=== PATIENT | female | born 1985 | race Caucasian/White ===

== ENCOUNTER 2022-12-22 18:18 | Inpatient (IN) | payer OTHER ==
--- NOTE | 2022-12-22 18:46 | ED ---
Abdominal Pain HPI - General Chief Complaint: Abdominal Pain Stated Complaint: Hypertension,Abd Pain Time Seen by Provider: 12/22/22 18:29 Source: patient, EMS, RN notes reviewed, old records reviewed Mode of arrival: EMS Limitations: no limitations - History of Present Illness Initial Comments: This is a 37-year-old female to the emergency department for evaluation today. Patient coming in for initial complaint of abdominal pain and subsequent severe elevated blood pressure. Patient states she went to an urgent care and was since the hospital for severely abnormal blood pressure. Patient states 10-15 years ago she had elevated blood pressure during but has been off medication for at least 10 years. Patient states she was taking weight loss medication, Adipex-P 3 months ago he did have significant weight loss around 30 pounds. Patient has significant shortness of breath especially with exertion but does not feel well at times feels near syncopal. MD Complaint: abdominal pain, other (Severely elevated blood pressure) -: unknown Location: diffuse, RUQ Migration to: RUQ Severity: moderate Severity scale (1-10): 6 Quality: fullness, sharp Consistency: intermittent Improves With: nothing Worsens With: nothing Context: sick contacts Associated Symptoms: nausea Treatments Prior to Arrival: other (0) - Related Data Home Medications Medication Instructions Recorded Confirmed Omeprazole 20 mg PO DAILY PRN 12/22/22 12/22/22 Allergies Allergy/AdvReac Type Severity Reaction Status Date / Time No Known Allergies Allergy Verified 12/22/22 19:56 Review of Systems ROS Statement: Those systems with pertinent positive or pertinent negative responses have been documented in the HPI. ROS Other: All systems not noted in ROS Statement are negative. Past Medical History Past Medical History: No Reported History History of Any Multi-Drug Resistant Organisms: None Reported Past Surgical History: No Surgical Hx Reported Past Psychological History: No Psychological Hx Reported Smoking Status: Never smoker Past Alcohol Use History: Occasional Past Drug Use History: None Reported - Past Family History Mother Family Medical History: Hypertension, Thyroid Disorder Father Family Medical History: Hypertension Brother(s) Family Medical History: Hypertension General Exam Limitations: no limitations General appearance: alert, in no apparent distress, anxious Head exam: Present: atraumatic, normocephalic, normal inspection Eye exam: Present: normal appearance, PERRL, EOMI. Absent: scleral icterus, conjunctival injection, periorbital swelling ENT exam: Present: normal exam, mucous membranes moist Neck exam: Present: normal inspection. Absent: tenderness, meningismus, lymphadenopathy Respiratory exam: Present: normal lung sounds bilaterally. Absent: respiratory distress, wheezes, rales, rhonchi, stridor Cardiovascular Exam: Present: normal rhythm, tachycardia, normal heart sounds. Absent: systolic murmur, diastolic murmur, rubs, gallop, clicks GI/Abdominal exam: Present: soft, normal bowel sounds. Absent: distended, tenderness, guarding, rebound, rigid Extremities exam: Present: normal inspection, full ROM, normal capillary refill. Absent: tenderness, pedal edema, joint swelling, calf tenderness Back exam: Present: normal inspection Neurological exam: Present: alert, oriented X3, CN II-XII intact Psychiatric exam: Present: normal affect, normal mood Skin exam: Present: warm, dry, intact, normal color. Absent: rash Course Vital Signs 12/22/22 12/22/22 12/22/22 18:21 18:30 19:00 Temperature 97.7 F Pulse Rate 120 H 119 H 118 H Respiratory 18 24 24 Rate Blood Pressure 245/175 233/178 232/177 O2 Sat by Pulse 98 98 98 Oximetry 12/22/22 12/22/22 12/22/22 19:15 19:30 20:15 Temperature Pulse Rate 86 82 84 Respiratory 24 19 26 H Rate Blood Pressure 189/141 165/126 177/136 O2 Sat by Pulse 97 97 98 Oximetry 12/22/22 12/22/22 12/22/22 20:45 21:00 21:30 Temperature Pulse Rate 78 76 75 Respiratory 19 24 25 H Rate Blood Pressure 171/128 171/127 173/123 O2 Sat by Pulse 95 95 96 Oximetry 12/22/22 12/22/22 12/22/22 22:00 22:30 23:00 Temperature Pulse Rate 89 76 74 Respiratory 18 17 20 Rate Blood Pressure 160/116 167/129 166/134 O2 Sat by Pulse 97 97 Oximetry - Reevaluation(s) Reevaluation #1: 12/22/22 20:45 Medical records reviewed Reevaluation #2: 12/22/22 20:45 Patient has mild improvement blood pressure Reevaluation #3: 12/22/22 20:45 Patient informed results questions answered Reevaluation #4: 12/22/22 20:45 Was pt. sent in by a medical professional or institution ([facility], [facility], urgent care, hospital, or detention...) When possible be specific @ -no Did you speak to anyone other than the patient for history (EMS, parent, family, police, friend...)? What history was obtained from this source @ -no Did you review nursing and triage notes (agree or disagree)? Why? @ -agree Are old charts reviewed (outside hosp., previous admission, EMS record, old EKG, old radiological studies, urgent care reports/EKG's, detention records)? Report findings @ -yes Differential Diagnosis (chest pain, altered mental status, abdominal pain women, abdominal pain men, vaginal bleeding, weakness, fever, dyspnea, syncope, headache, dizziness, GI bleed, back pain, seizure, CVA, palpatations, mental health, musculoskeletal)? @ -prior EKG interpreted by me (3pts min.). @ -yes X-rays interpreted by me (1pt min.). @ -yes CT interpreted by me (1pt min.). @ -yes U/S interpreted by me (1pt. min.). @ -no What testing was considered but not performed or refused? (CT, X-rays, U/S, labs)? Why? @ -none What meds were considered but not given or refused? Why? @ -none Did you discuss the management of the patient with other professionals (professionals i.e. [facility], [facility], lab, RT, psych nurse, psychosocial rehabilitation counselor, microsoft dynamics ax developer, teacher, branch officer, high risk case manager)? Give summary @ -no Was smoking cessation discussed for >3mins.? @ -no Was critical care preformed (if so, how long)? @ -yes31 Were there social determinants of health that impacted care today? How? (Homelessness, low income, unemployed, alcoholism, drug addiction, transportation, low edu. Level, literacy, decrease access to med. care, half-way, rehab)? @ -none Was there de-escalation of care discussed even if they declined (Discuss DNR or withdrawal of care, Hospice)? DNR status @ -no What co-morbidities impacted this encounter? (DM, HTN, Smoking, COPD, CAD, Cancer, CVA, ARF, Chemo, Hep., AIDS, mental health diagnosis, sleep apnea, morbid obesity)? @ -none Was patient admitted / discharged? Hospital course, mention meds given and route, prescriptions, significant lab abnormalities, going to OR and other pert inent info. @ - 37 female to the emergency department for evaluation patient presents with abdominal pain and severely elevated blood pressure hypertensive emergency. Patient will be admitted for cardiology to evaluate treat blood pressure control. Patient states her blood pressure has been high and she has not blood pressure medications earlier in her life. This was after patient is no longer currently on blood pressure medications, went to the urgent care for abdominal pain with symptoms of DF for severely elevated blood pressure. Patient feels weak lightheaded shortness of breath especially with activity. Admitted Undiagnosed new problem with uncertain prognosis? @ -no Drug Therapy requiring intensive monitoring for toxicity (Heparin, Nitro, Insulin, Cardizem)? @ -no Were any procedures done? @ -no Diagnosis/symptom? @ -Hypertensive emergency, CHF Acute, or Chronic, or Acute on Chronic? @ -Acute Uncomplicated (without systemic symptoms) or Complicated (systemic symptoms)? @ -Complicated Side effects of treatment? @ -no Exacerbation, Progression, or Severe Exacerbation? @ -exacerbation Poses a threat to life or bodily function? How? (Chest pain, USA, MD, pneumonia, PE, COPD, DKA, ARF, appy, cholecystitis, CVA, Diverticulitis, Homicidal, Suicidal, threat to staff... and all critical care pts) @ -yes severely elevated blood pressure, CHF Reevaluation #5: Differential Abdominal Pain Women: Appendicitis, Cholecystitis, diverticulosis, ischemic bowel, pancreatitis, hepatitis, UTI, gastroenteritis, AAA, incarcerated hernia, bowel obstruction, constipation, inflammatory bowel, hepatitis, peptic ulcer disease, splenic infarction, perforated viscus, vulvitis, ovarian torsion, PID, kidney stone, placenta abruption, this is not meant to be an all-inclusive list - Consultations Consultation #1: Spoke with Dr. pop agrees to admit this patient Medical Decision Making - Medical Decision Making 37 female to the emergency department for evaluation patient presents with abdominal pain and severely elevated blood pressure hypertensive emergency. Patient will be admitted for cardiology to evaluate treat blood pressure control. Patient states her blood pressure has been high and she has not blood pressure medications earlier in her life. This was after patient is no longer currently on blood pressure medications, went to the urgent care for abdominal pain with symptoms of DF for severely elevated blood pressure. Patient feels weak lightheaded shortness of breath especially with activity. - Lab Data Result diagrams: 12/23/22 07:56 12/23/22 07:56 Lab Results 12/22/22 12/22/22 12/22/22 Range/Units 00:01 18:52 18:52 WBC 8.5 (3.8-10.6) k/uL RBC 4.57 (3.80-5.40) m/uL Hgb 13.9 (11.4-16.0) gm/dL Hct 40.2 (34.0-46.0) % MCV 88.1 (80.0-100.0) fL MCH 30.4 (25.0-35.0) pg MCHC 34.5 (31.0-37.0) g/dL RDW 15.0 (11.5-15.5) % Plt Count 150 (150-450) k/uL MPV 9.3 Neutrophils % 72 % Lymphocytes % 21 % Monocytes % 3 % Eosinophils % 2 % Basophils % 1 % Neutrophils # 6.1 (1.3-7.7) k/uL Lymphocytes # 1.8 (1.0-4.8) k/uL Monocytes # 0.2 (0-1.0) k/uL Eosinophils # 0.2 (0-0.7) k/uL Basophils # 0.1 (0-0.2) k/uL Poikilocytosis Slight PT (9.0-12.0) sec INR (<1.2) APTT (22.0-30.0) sec Sodium 136 L (137-145) mmol/L Potassium 3.4 L (3.5-5.1) mmol/L Chloride 107 (98-107) mmol/L Carbon Dioxide 15 L (22-30) mmol/L Anion Gap 14 mmol/L BUN 19 H (7-17) mg/dL Creatinine 1.03 (0.52-1.04) mg/dL Est GFR (CKD-EPI)AfAm 81 (>60 ml/min/1.73 sqM) Est GFR (CKD-EPI)NonAf 71 (>60 ml/min/1.73 sqM) Glucose 108 H (74-99) mg/dL Calcium 9.3 (8.4-10.2) mg/dL Phosphorus 4.3 (2.5-4.5) mg/dL Magnesium 1.8 (1.6-2.3) mg/dL Total Bilirubin 0.8 (0.2-1.3) mg/dL AST 40 H (14-36) U/L ALT 35 H (4-34) U/L Alkaline Phosphatase 94 (38-126) U/L NT-Pro-B Natriuret Pep pg/mL Total Protein 6.9 (6.3-8.2) g/dL Albumin 4.1 (3.5-5.0) g/dL Amylase 40 (30-110) U/L Lipase 111 (23-300) U/L Urine HCG, Qual Not Detected (Not Detectd) 12/22/22 12/22/22 Range/Units 18:52 20:35 WBC (3.8-10.6) k/uL RBC (3.80-5.40) m/uL Hgb (11.4-16.0) gm/dL Hct (34.0-46.0) % MCV (80.0-100.0) fL MCH (25.0-35.0) pg MCHC (31.0-37.0) g/dL RDW (11.5-15.5) % Plt Count (150-450) k/uL MPV Neutrophils % % Lymphocytes % % Monocytes % % Eosinophils % % Basophils % % Neutrophils # (1.3-7.7) k/uL Lymphocytes # (1.0-4.8) k/uL Monocytes # (0-1.0) k/uL Eosinophils # (0-0.7) k/uL Basophils # (0-0.2) k/uL Poikilocytosis PT 11.1 (9.0-12.0) sec INR 1.1 (<1.2) APTT 22.2 (22.0-30.0) sec Sodium (137-145) mmol/L Potassium (3.5-5.1) mmol/L Chloride (98-107) mmol/L Carbon Dioxide (22-30) mmol/L Anion Gap mmol/L BUN (7-17) mg/dL Creatinine (0.52-1.04) mg/dL Est GFR (CKD-EPI)AfAm (>60 ml/min/1.73 sqM) Est GFR (CKD-EPI)NonAf (>60 ml/min/1.73 sqM) Glucose (74-99) mg/dL Calcium (8.4-10.2) mg/dL Phosphorus (2.5-4.5) mg/dL Magnesium (1.6-2.3) mg/dL Total Bilirubin (0.2-1.3) mg/dL AST (14-36) U/L ALT (4-34) U/L Alkaline Phosphatase (38-126) U/L NT-Pro-B Natriuret Pep 5850 pg/mL Total Protein (6.3-8.2) g/dL Albumin (3.5-5.0) g/dL Amylase (30-110) U/L Lipase (23-300) U/L Urine HCG, Qual (Not Detectd) - EKG Data -: EKG Interpreted by Me (EKG is sinus tachycardia 113 VA 112 QRS 89 QTC 391) - Radiology Data Radiology results: report reviewed (CT chest abdomen pelvis is positive CHF, pelvis and ultrasound negative for acute disease), image reviewed Critical Care Time Critical Care Time: Yes Total Critical Care Time: 31 Disposition Clinical Impression: Hypertensive emergency, Abdominal pain, CHF (congestive heart failure) Disposition: HOME SELF-CARE Condition: Good Is patient prescribed a controlled substance at d/c from ED?: No Time of Disposition: 20:40
[2022-12-22] MEDS ORDERED: PANTOPRAZOLE 40 MG/10 ML VIAL IVP STA (18:47)
[2022-12-22] MEDS ORDERED: HYDROmorphone 1 MG/ML 1 ML SYRINGE IVP STA ×2 (18:47→20:13)
[2022-12-22] MEDS ORDERED: ONDANSETRON 4 MG/2 ML VIAL IVP STA (18:47)
[2022-12-22] MEDS ORDERED: LABETALOL 5 MG/ML VIAL MDV IVP STA ×2 (18:47→20:35)
[2022-12-22] MEDS ORDERED: SODIUM CHLORIDE 0.9% 1,000 ML IV STA ×2 (18:47→20:35)
[2022-12-22 19:00] LABS: Basophils # (A) 0.1 k/uL (0-0.2); Basophils % (A) 1 %; Eosinophils # (A) 0.2 k/uL (0-0.7); Eosinophils % (A) 2 %; HCT 40.2 % (34.0-46.0); HGB 13.9 gm/dL (11.4-16.0); Lymphocytes # (A) 1.8 k/uL (1.0-4.8); Lymphocytes % (A) 21 %; MCH 30.4 pg (25.0-35.0); MCHC 34.5 g/dL (31.0-37.0); MCV 88.1 fL (80.0-100.0); Mean Platelet Volume 9.3; Monocytes # (A) 0.2 k/uL (0-1.0); Monocytes % (A) 3 %; Neutrophils # (A) 6.1 k/uL (1.3-7.7); Neutrophils % (A) 72 %; Platelet Count 150 k/uL (150-450); Poikilocytosis Slight; RBC 4.57 m/uL (3.80-5.40); WBC 8.5 k/uL (3.8-10.6)
[2022-12-22 19:08] LABS: ALT 35 U/L (4-34); AST 40 U/L (14-36); African American GFR (CKD) 81 (>60 ml/min/1.73 sqM); Albumin 4.1 g/dL (3.5-5.0); Alkaline Phosphatase 94 U/L (38-126); Amylase 40 U/L (30-110); Anion Gap 14 mmol/L; Blood Urea Nitrogen 19 mg/dL (7-17); Calcium 9.3 mg/dL (8.4-10.2); Carbon Dioxide 15 mmol/L (22-30); Chloride 107 mmol/L (98-107); Glucose 108 mg/dL (74-99); Lipase 111 U/L (23-300); Magnesium 1.8 mg/dL (1.6-2.3); Non-African American GFR(CKD) 71 (>60 ml/min/1.73 sqM); Phosphorus 4.3 mg/dL (2.5-4.5); Potassium 3.4 mmol/L (3.5-5.1); Sodium 136 mmol/L (137-145); Total Bilirubin 0.8 mg/dL (0.2-1.3); Total Protein 6.9 g/dL (6.3-8.2)
[2022-12-22 19:13] LABS: INR 1.1 (<1.2); Partial Thromboplastin Time 22.2 sec (22.0-30.0); Prothrombin Time 11.1 sec (9.0-12.0)
--- NOTE | 2022-12-22 20:28 | CT ---
EXAMINATION TYPE: CT angio chest DATE OF EXAM: 12/22/2022 COMPARISON: None HISTORY: 37-year-old female RUQ pain, hypertension and sob TECHNIQUE: Contiguous axial scanning of the chest performed with IV Contrast, patient injected with 1 00 mL of Isovue 370. Coronal/sagittal MIP reconstructions performed. CT DLP: 1500.5 mGycm Automated exposure control for dose reduction was used. FINDINGS: The heart is normal size without pericardial effusion. No flattening of the interventricular septum t mitul there is prominent reflux of contrast into the hepatic veins. Borderline ectasia ascending aorta 3.5 cm. Partial distal origins are obscured by dense contrast bolu s. Precarinal lymph node measuring 1.3 cm. There is hilar lymphadenopathy measuring up to 1.4 cm. Subcar inal adenopathy measuring up to 1.6 cm. Seems to be some thickening of the central bronchovascular bu ndles. Satisfactory opacification of the pulmonary arterial system without evidence for pulmonary embolus. Septal lines throughout the lungs and diffuse bronchial wall thickening. No perilymphatic nodularity is seen. No cystic change or groundglass density. No consolidation or pleural effusion. Abdomen reported separately. Bones: No osseous destructive process. IMPRESSION: 1. NO EVIDENCE FOR PULMONARY EMBOLUS. 2. HOWEVER, THERE IS REFLUX OF CONTRAST INTO THE HEPATIC VEINS AND DIFFUSE INTERSTITIAL THICKENING IN CLUDING CENTRAL THICKENING ALONG THE BRONCHOVASCULAR BUNDLES AND DIFFUSE SMOOTH SEPTAL LINES. FINDING S MAY BE SEEN WITH PULMONARY VASCULAR CONGESTION. QUERY ANY SIGNIFICANT HYPERTENSION OR SIGNS/SYMPTOM S OF EARLY CARDIAC DECOMPENSATION. 3. THERE IS ADDITIONAL MEDIASTINAL AND HILAR LYMPHADENOPATHY MEASURING UP TO 1.6 CM. THIS MAY BE REAC TIVE. DIFFERENTIAL CONSIDERATIONS INCLUDE ATYPICAL FUNGAL/MYCOBACTERIAL INFECTIONS, GRANULOMATOUS DIS EASE SUCH SARCOIDOSIS, AND NEOPLASTIC ETIOLOGIES SUCH LYMPHOMA. CONSIDER PULMONARY MEDICINE REF ERRAL AND THREE-MONTH FOLLOW-UP CT TO REASSESS. 4. ABDOMEN REPORTED SEPARATELY.
--- NOTE | 2022-12-22 20:32 | CT ---
EXAMINATION TYPE: CT abdomen pelvis w con DATE OF EXAM: 12/22/2022 COMPARISON: NONE HISTORY: 37-year-old female RUQ pain, hypertension and sob TECHNIQUE: Contiguous axial scanning of the abdomen and pelvis following administration of 100 ml Iso [place] 300 IV contrast. Delayed images through the kidneys and coronal/sagittal reconstructions perform ed. CT DLP: 1500.5 mGycm Automated exposure control for dose reduction was used. FINDINGS: Chest reported separately. Slight heterogeneous appearance of uncertain etiology, possible phase of imaging. Correlate with LFTs . The liver is borderline enlarged at 17.9 cm. Poorly venous system is patent. No biliary ductal dila tation. Gallbladder, adrenal glands, spleen, and pancreas within normal limits. There is no excretion of cont rast into the collecting systems on the delayed kidney images. Further correlation to exclude acute k idney injury. No dilated small bowel, free fluid, or free air. No mesenteric or retroperitoneal lymphadenopathy. Normal appendix. Mild stool within the cecum and lower ascending colon. No pericolonic inflammatory c hange. Bladder is urine distended. The uterus is retroverted. Mild cul-de-sac free fluid likely physiologic. Both ovaries are visualized. A 3.1 cm dominant follicle or functional cyst of the right ovary. No pe lvic lymphadenopathy seen. Bones: No osseous destructive process. IMPRESSION: 1. HETEROGENEOUS APPEARANCE TO THE LIVER PARENCHYMA OF UNCLEAR ETIOLOGY, POSSIBLE PHASE OF IMAGING. C ORRELATE WITH LFT's TO EXCLUDE NONSPECIFIC HEPATOCELLULAR DISEASE. 2. NO CONTRAST SEEN WITHIN THE RENAL COLLECTING SYSTEMS ON THE DELAYED KIDNEY SCAN. CORRELATE WITH BU N AND CREATININE TO EXCLUDE ALFREDO. 3. RETROVERTED UTERUS. 3.1 CM DOMINANT FOLLICLE OR FUNCTIONAL CYST OF THE RIGHT OVARY. MILD CUL-DE-SA C FREE FLUID LIKELY PHYSIOLOGIC.
[2022-12-22] MEDS ORDERED: NALOXONE 0.4 MG/ML 1 ML VIAL IV PRN (20:44)
[2022-12-22] MEDS ORDERED: HYDROmorphone 1 MG/ML 1 ML SYRINGE IVP PRN (20:44)
[2022-12-22] MEDS ORDERED: SODIUM CHLORIDE 0.9% 1,000 ML IV SCH (20:45)
[2022-12-22] MEDS ORDERED: hydrALAZINE HCL 20 MG/ML 1 ML VIAL IVP STA (20:49)
--- NOTE | 2022-12-22 22:07 | US ---
EXAMINATION TYPE: US gallbladder DATE OF EXAM: 12/22/2022 COMPARISON: CT 12/22/2022 CLINICAL INDICATION: Female, 37 years old with history of pain; HTN. RUQ pain. TECHNIQUE: Multiple sonographic images of the right upper quadrant are obtained. FINDINGS: EXAM MEASUREMENTS: Liver Length: 16.2 cm Gallbladder Wall: 0.6 cm CBD: 0.4 cm Right Kidney: 10.5 x 5.2 x 4.7 cm Pancreas: Most of the pancreas is visualized and shows no gross abnormality. Liver: Slightly heterogeneous liver parenchyma. There is a 1.7 cm echogenic circular lesion in right lobe, possible hemangioma or focal fat in the reassessed in 3 months. Gallbladder: There may be mild wall thickening up to 6 mm versus trace pericholecystic fluid. No shad owing stones are seen. Evidence for sonographic Potter's sign: neg CBD: wnl Right Kidney: No hydronephrosis or masses seen IMPRESSION: 1. Possible nonspecific mild gallbladder wall thickening. This can be seen if there is any adjacent i nflammation such as hepatitis or with conditions that cause third spacing. 2. Heterogeneous liver parenchyma. Correlate with LFTs to exclude nonspecific hepatocellular disease. 3. A 1.7 cm echogenic area in the right liver lobe could represent a hemangioma or area of focal fat. Reassessed with a 3 month follow-up ultrasound. 4. No gallstones.
[2022-12-22] MEDS: ONDANSETRON 4 MG/2 ML VIAL IVP PRN (22:28)
[2022-12-22 23:07] LABS: Appearance,Urine Clear (Clear); Bilirubin,Urine Negative (Negative); Blood,Urine Negative (Negative); Color,Urine Yellow; Glucose,Urine (UA) Negative (Negative); Ketones,Urine Negative (Negative); Leukocyte Esterase,Urine Negative (Negative); Mucus,Urine Rare /hpf; Nitrite,Urine Negative (Negative); Protein,Urine 1+ (Negative); RBC,Urine 2 /hpf (0-5); Squamous Epithelial Cell,Urine 26 /hpf (0-4); Urobilinogen,Urine <2.0 mg/dL (<2.0); WBC,Urine 1 /hpf (0-5)
[2022-12-22 23:08] LABS: Specific Gravity,Urine >1.050 (1.001-1.035)
[2022-12-22 23:14] LABS: Amphetamine Screen,Urine Detected (NotDetected); Barbiturate Screen,Urine Not Detected (NotDetected); Benzodiazepines Screen,Urine Not Detected (NotDetected); Cocaine Screen,Urine Not Detected (NotDetected); Methadone Screen, Urine Not Detected (NotDetected); Opiate Screen,Urine Detected (NotDetected); Oxycodone Screen, Urine Not Detected (NotDetected); Phencyclidine Screen,Urine Not Detected (NotDetected); Tricyclic Antidepressant,Urine Not Detected (NotDetected); Urn Cannabinoid Scrn Not Detected (NotDetected)
[2022-12-22] MEDS: ENOXAPARIN 40 MG/0.4 ML SYRINGE SQ SCH (23:59)
[2022-12-23] MEDS ORDERED: amLODIPine 10 MG TAB PO STA (00:32)
[2022-12-23] MEDS: NITROGLYCERIN OINT 1 INCH/GM PACKET TOPICAL SCH ×2 (00:52→08:19)
[2022-12-23] MEDS: hydrALAZINE HCL 50 MG TAB PO SCH ×4 (00:53→19:52)
[2022-12-23 08:16] LABS: Basophils % (A) 1 %; Eosinophils # (A) 0.1 k/uL (0-0.7); Eosinophils % (A) 1 %; HCT 39.6 % (34.0-46.0); Lymphocytes # (A) 1.4 k/uL (1.0-4.8); Lymphocytes % (A) 20 %; MCHC 32.8 g/dL (31.0-37.0); MCV 91.6 fL (80.0-100.0); Mean Platelet Volume 9.5; Monocytes # (A) 0.2 k/uL (0-1.0); Monocytes % (A) 3 %; Neutrophils # (A) 5.5 k/uL (1.3-7.7); Neutrophils % (A) 75 %; Platelet Count 130 k/uL (150-450); Poikilocytosis Slight; RBC 4.32 m/uL (3.80-5.40); RDW 15.3 % (11.5-15.5); WBC 7.3 k/uL (3.8-10.6)
[2022-12-23] MEDS ORDERED: ACETAMINOPHEN TAB 325 MG TAB PO PRN (08:17)
[2022-12-23] MEDS: ENOXAPARIN 40 MG/0.4 ML SYRINGE SQ SCH (08:19)
[2022-12-23] MEDS: ONDANSETRON 4 MG/2 ML VIAL IVP PRN (08:25)
[2022-12-23] MEDS: amLODIPine 10 MG TAB PO SCH (08:34)
[2022-12-23 08:37] LABS: ALT 40 U/L (4-34); AST 37 U/L (14-36); African American GFR (CKD) >90 (>60 ml/min/1.73 sqM); Albumin 3.6 g/dL (3.5-5.0); Alkaline Phosphatase 70 U/L (38-126); Anion Gap 8 mmol/L; Blood Urea Nitrogen 14 mg/dL (7-17); Calcium 8.3 mg/dL (8.4-10.2); Carbon Dioxide 22 mmol/L (22-30); Chloride 108 mmol/L (98-107); Glucose 100 mg/dL (74-99); Magnesium 1.9 mg/dL (1.6-2.3); Non-African American GFR(CKD) 81 (>60 ml/min/1.73 sqM); Phosphorus 4.3 mg/dL (2.5-4.5); Potassium 3.7 mmol/L (3.5-5.1); Sodium 138 mmol/L (137-145); Total Bilirubin 0.7 mg/dL (0.2-1.3); Total Protein 5.9 g/dL (6.3-8.2)
[2022-12-23] MEDS ORDERED: LISINOPRIL-HCTZ 20-12.5 MG 1 EACH TAB PO SCH (09:00)
[2022-12-23] MEDS ORDERED: METOPROLOL TARTRATE 50 MG TAB PO SCH (09:00)
--- NOTE | 2022-12-23 11:09 | US ---
EXAMINATION TYPE: US renal artery duplex complete DATE OF EXAM: 12/23/2022 COMPARISON: CT 12/22/2022 CLINICAL INDICATION: Female, 37 years old with history of r/o renal artery stenosis; High blood press ure MEASUREMENTS: RENAL SIZE: Rt Kidney: 9.9 x 4.3 x 5.5 cm Lt Kidney: 11.2 x 4.5 x 5.6 cm RESISTANCE INDEX Right: 0.7 Left: 0.6 RA/AO RATIO (< 3.5 ) Right: 1.4 Left: 1.1 RA VELOCITY ( < 180 cm/s) Right: 139.2 Left: 110.1 Splenule anterior to left kidney= 1.5 x 1.0 x 1.3 cm Left renal calculus lower pole= 0.5 cm IMPRESSION: 1. No ultrasound evidence for renal artery stenosis. 2. Nonobstructive left renal calculus.
--- NOTE | 2022-12-23 11:25 | P.CRDCN ---
History of Present Illness History of present illness: HISTORY OF PRESENT ILLNESS: This is a 37-year-old female with a past medical history significant for hypertension during 2 of her pregnancies. 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 We have been asked to see the patient in consultation for hypertension. Patient examined at the bedside. Patient presented to urgent care yesterday secondary to abdominal pain. The patient was found to have extremely elevated blood pressures with a systolic greater than 200 and was instructed to come to the emergency room. Patient's blood pressure on arrival was 245/175. She is also tachycardic with a heart rate are on 120. Patient also reports feeling short of breath with exertion. She denies any chest pain or pressure. She is a nonsmoker. She reports occasional alcohol use. The patient states she has not been on blood pressure medications and approximately 13 years. She states she was off of her blood pressure medication within 1 year of delivering her last child. * EKG reveals sinus mechanism with signs of LVH * Laboratory data: WBC 7.3. Hemoglobin 13.0. Platelet count 130. Sodium 138. Potassium 3.7. BUN 14. Creatinine 0.92. TSH 4.080. * Current home cardiac medications include none REVIEW OF SYSTEMS: At the time of my exam: CONSTITUTIONAL: Denies fever or chills. HEENT: Denies blurred vision, vision changes, or eye pain. Denies hemoptysis CARDIOVASCULAR: Denies chest pain. Denies orthopnea. Denies PND. Denies palpitations RESPIRATORY: Denies shortness of breath. GASTROINTESTINAL: Denies abdominal pain. Denies nausea or vomiting. HEMATOLOGIC: Denies bleeding disorders. GENITOURINARY: Denies any blood in urine. SKIN: Denies pruitis. Denies rash. PHYSICAL EXAM: VITAL SIGNS: Reviewed. GENERAL: Well-developed in no acute distress. HEENT: Head is normocephalic. Pupils are equal, round. Sclerae anicteric. Mucous membranes of the mouth are moist. Neck supple. No JVD or thyromegaly LUNGS: Respirations even and unlabored. Lungs essentially clear to auscultation bilaterally. HEART: Regular rate and rhythm. S1 and S2 heard. Soft systolic murmur noted ABDOMEN: Soft. Nondistended. Nontender. EXTREMITIES: Normal range of motion. No clubbing or cyanosis. Peripheral pulses intact. No lower extremity edema NEUROLOGIC: Awake and alert. Oriented x 3. ASSESSMENT: Abdominal pain Hypertensive emergency Hypokalemia History of hypertension in Drug screen positive for amphetamines PLAN: Obtain 2-D echo to assess cardiac structure and function Discontinue lisinopril-hydrochlorothiazide and metoprolol temporarily. Continue with Norvasc and hydralazine at this time Obtain renal artery doppler to rule out renal artery stenosis Patient is currently undergoing 24-hour urine Obtain labs for secondary hypertension Further recommendations pending patient's course Nurse practitioner note has been reviewed by physician. Signing provider agrees with the documented findings, assessment, and plan of care. Past Medical History Past Medical History: No Reported History Additional Past Medical History / Comment(s): Nodule on thyroid History of Any Multi-Drug Resistant Organisms: None Reported Past Surgical History: No Surgical Hx Reported Additional Past Surgical History / Comment(s): Closed head injury Past Anesthesia/Blood Transfusion Reactions: No Reported Reaction Past Psychological History: No Psychological Hx Reported Smoking Status: Former smoker Past Alcohol Use History: Occasional Past Drug Use History: None Reported - Past Family History Mother Family Medical History: Hypertension, Thyroid Disorder Father Family Medical History: Hypertension Brother(s) Family Medical History: Hypertension Medications and Allergies Home Medications Medication Instructions Recorded Confirmed Type Omeprazole 20 mg PO DAILY PRN 12/22/22 12/22/22 History Allergies Allergy/AdvReac Type Severity Reaction Status Date / Time No Known Allergies Allergy Verified 12/22/22 19:56 Physical Exam Vitals: Vital Signs Temp Pulse Pulse Resp BP BP Pulse Ox 12/23/22 03:59 97.9 F 81 18 156/111 98 12/23/22 00:00 97.9 F 79 19 176/137 98 12/22/22 23:00 74 20 166/134 97 12/22/22 22:30 76 17 167/129 12/22/22 22:00 89 18 160/116 97 12/22/22 21:30 75 25 H 173/123 96 12/22/22 21:00 76 24 171/127 95 12/22/22 20:45 78 19 171/128 95 12/22/22 20:15 84 26 H 177/136 98 12/22/22 19:30 82 19 165/126 97 12/22/22 19:15 86 24 189/141 97 12/22/22 19:00 118 H 24 232/177 98 12/22/22 18:30 119 H 24 233/178 98 12/22/22 18:21 97.7 F 120 H 18 245/175 98 Intake and Output 12/22/22 12/23/22 12/23/22 22:59 06:59 14:59 Other: Voiding Method Toilet # Voids 2 Weight 83.461 kg 87.5 kg Results 12/23/22 07:56 12/23/22 07:56 Cardiac Enzymes 12/22/22 Range/Units 18:52 AST 40 H (14-36) U/L Coagulation 12/22/22 Range/Units 18:52 PT 11.1 (9.0-12.0) sec APTT 22.2 (22.0-30.0) sec CBC 12/22/22 12/23/22 Range/Units 18:52 07:56 WBC 8.5 7.3 (3.8-10.6) k/uL RBC 4.57 4.32 (3.80-5.40) m/uL Hgb 13.9 13.0 (11.4-16.0) gm/dL Hct 40.2 39.6 (34.0-46.0) % Plt Count 150 130 L (150-450) k/uL Comprehensive Metabolic Panel 12/22/22 Range/Units 18:52 Sodium 136 L (137-145) mmol/L Potassium 3.4 L (3.5-5.1) mmol/L Chloride 107 (98-107) mmol/L Carbon Dioxide 15 L (22-30) mmol/L BUN 19 H (7-17) mg/dL Creatinine 1.03 (0.52-1.04) mg/dL Glucose 108 H (74-99) mg/dL Calcium 9.3 (8.4-10.2) mg/dL AST 40 H (14-36) U/L ALT 35 H (4-34) U/L Alkaline Phosphatase 94 (38-126) U/L Total Protein 6.9 (6.3-8.2) g/dL Albumin 4.1 (3.5-5.0) g/dL Current Medications Generic Name Dose Route Start Last Admin Trade Name Freq PRN Reason Stop Dose Admin Acetaminophen 650 mg 12/23/22 08:17 12/23/22 08:23 Acetaminophen Tab 325 Mg Tab PO 650 mg Q6HR PRN Administration Fever and/ or Mild Pain Amlodipine Besylate 10 mg 12/23/22 09:00 Amlodipine 10 Mg Tab PO DAILY [facility] Enoxaparin Sodium 40 mg 12/22/22 23:00 12/23/22 08:19 Enoxaparin 40 Mg/0.4 Ml Syringe SQ 40 mg DAILY ANGELICA Administration Hydralazine HCl 50 mg 12/23/22 00:45 12/23/22 08:18 Hydralazine Hcl 50 Mg Tab PO 50 mg TID ANGELICA Administration Hydromorphone HCl 1 mg 12/22/22 20:44 Hydromorphone 1 Mg/Ml 1 Ml Syringe IVP Q3HR PRN Severe Pain (Scale 7 to 10) Sodium Chloride 1,000 mls @ 75 mls/hr 12/22/22 20:45 12/22/22 22:31 Saline 0.9% IV 75 mls/hr .[id number] ANGELICA Administration Naloxone HCl 0.2 mg 12/22/22 20:44 Naloxone 0.4 Mg/Ml 1 Ml Vial IV Q2M PRN Opioid Reversal Ondansetron HCl 4 mg 12/22/22 20:44 12/23/22 08:25 Ondansetron 4 Mg/2 Ml Vial IVP 4 mg Q8HR PRN Administration Nausea And Vomiting Intake and Output 12/22/22 12/23/22 12/23/22 22:59 06:59 14:59 Other: Voiding Method Toilet # Voids 2 Weight 83.461 kg 87.5 kg 12/23/22 07:56 12/22/22 18:52
[2022-12-23 13:53] VITALS: BMI 30.2
--- NOTE | 2022-12-23 19:28 | P.HPIM ---
History of Present Illness H&P Date: 12/23/22 Chief Complaint: Short of breath This is a pleasant 37-year-old patient. Follows with Dr. Peralta. Normally in good health. Rather radioactive. After her first patient did have some blood pressure. Then during the last trimester of the second she had to be in bedrest for blood pressure. A few weeks after she was on propranolol and blood pressure came back to normal. Subsequently patient been doing annual checkups and a blood pressure is normally good. Her last was about 13 years ago. Last 34 weeks patient been noticing some pain in the right upper quadrant and epigastrium with exertion. Which is progressively gotten worse. Most of the last 2 weeks. Non-walking 100 feet she rarely gets short of breath. Pain in the right upper quadrant. Also noticed some slight orthopnea. History decided to go to the urgent care. The pressure recorded was 2 37 x 1 77. Patient in the ER required IV labetalol. IV hydralazine. His morning patient received amlodipine 10 mg and hydralazine 50 mg. Patient's complete by her mother in the room. No chest pain per se. Patient has denied the use of amphetamines as it showed up in the urine. Review of systems: GEN.: Tired EYES: None HEENT: None NECK: None RESPIRATORY: As above CARDIOVASCULAR: [As above GASTROINTESTINAL: As above GENITOURINARY: None MUSCULOSKELETAL: None LYMPHATICS: None HEMATOLOGICAL: None PSYCHIATRY: None NEUROLOGICAL: None Past medical history to include: Thyroid nodule. Blood pressure associated with . Close head injury. Social history: Patient works at [employer]. Alcohol occasionally. No smoking. 2 daughters at home 13 and 15 years of age. Physical examination: VITAL SIGNS: 97.7, 120, 18, 245/175, 98% on room air, and presentation GENERAL: [BMI 30.2, sitting in bed awake not in distress. EYES: Pupils equal. Conjunctiva normal. HEENT: External appearance of nose and ears normal, oral cavity grossly normal. Area of redness of the cheeks and over the bridge of the nose NECK: JVD not raised; masses not palpable. HEART: First and second heart sounds are normal; no edema. LUNGS: Respiratory rate normal; clear to auscultation. ABDOMEN: Soft, nontender, liver spleen not palpable, no masses palpable. PSYCH: Alert and oriented x3; mood and affect normal. MUSCULOSKELETAL:No Clubbing/cyanosis;muscles-grossly intact NEUROLOGICAL: Cranial nerves grossly intact; no facial asymmetry, power and sensation grossly intact. LYMPHATICS: No lymph nodes palpable in the axilla and neck INVESTIGATIONS, reviewed in the clinical context: Ultrasound gallbladder: Nonspecific mild gallbladder wall thickening. Hete rogenous liver parenchyma. No gallstones. Ultrasound renal artery duplex complaint: No evidence of renal artery stenosis. Nonobstructive left renal calculus. EKG tracing personally reviewed by me-normal sinus rhythm. ST segment depression through infertile lateral leads Chest CTA: Negative for PE. Reflux of contrast of the hepatic veins and diffuse is a tissue thickening along the bronchovascular bundle and diffuse smoked septal lines. May suggest pulmonary vascular congestion. Mediastinal hilar lymphadenopathy measuring up to 1.6 cm. White count 7.3 hemoglobin 13 platelets 1:30 sodium 138 ration 3.7 BUN 14 creatinine 0.9 to glucose 100 AST 37 ALT 40 UA protein 1+ Urine drug screen positive for opioids, amphetamines. TSH 4.0 Cortisol 9 ProBNP 5850 Assessment and plan: -This patient presents with 3-4 weeks of increasing shortness of breath with exertion. More so in the last 2 weeks. Also complaining of right upper quadrant pain epigastric pain with the same. Patient also has noticed some orthopnea. She has a prior history of blood pressure. Associated with . Otherwise has been in good health. Does not seem to have any other systemic symptoms of finding. Except for a rash on the face. Differential is large. Consider pheochromocytoma. Plasma metanephrines, free was collected this morning. Patient has slight proteinuria. Nonspecific lymphadenopathy in the chest. Sarcoidosis would be a differential. Especially given the shortness of breath. PE was ruled out. Associated with very high uncontrolled blood pressure. Consultation to cardiology.. Pulmonary. -Accelerated hypertension Rule out secondary causes. Amlodipine 10 mg a day. Hydralazine 50 mg 3 times a day. -Proteinuria We will do a microalbumin urea creatinine ratio. Patient is pending 2-D echocardiogram. Also consult nephrology because of proteinuria. Discussed with patient and mother. Past Medical History Past Medical History: No Reported History Additional Past Medical History / Comment(s): Nodule on thyroid History of Any Multi-Drug Resistant Organisms: None Reported Past Surgical History: No Surgical Hx Reported Additional Past Surgical History / Comment(s): Closed head injury Past Anesthesia/Blood Transfusion Reactions: No Reported Reaction Past Psychological History: No Psychological Hx Reported Smoking Status: Former smoker Past Alcohol Use History: Occasional Past Drug Use History: None Reported - Past Family History Mother Family Medical History: Hypertension, Thyroid Disorder Father Family Medical History: Hypertension Brother(s) Family Medical History: Hypertension Medications and Allergies Home Medications Medication Instructions Recorded Confirmed Type Omeprazole 20 mg PO DAILY PRN 12/22/22 12/22/22 History Allergies Allergy/AdvReac Type Severity Reaction Status Date / Time No Known Allergies Allergy Verified 12/22/22 19:56 Physical Exam Vitals: Vital Signs Temp Pulse Pulse Resp BP BP Pulse Ox 12/23/22 03:59 97.9 F 81 18 156/111 98 12/23/22 00:00 97.9 F 79 19 176/137 98 12/22/22 23:00 74 20 166/134 97 12/22/22 22:30 76 17 167/129 12/22/22 22:00 89 18 160/116 97 12/22/22 21:30 75 25 H 173/123 96 12/22/22 21:00 76 24 171/127 95 12/22/22 20:45 78 19 171/128 95 12/22/22 20:15 84 26 H 177/136 98 12/22/22 19:30 82 19 165/126 97 12/22/22 19:15 86 24 189/141 97 12/22/22 19:00 118 H 24 232/177 98 12/22/22 18:30 119 H 24 233/178 98 12/22/22 18:21 97.7 F 120 H 18 245/175 98 Intake and Output 12/22/22 12/23/22 12/23/22 22:59 06:59 14:59 Other: Voiding Method Toilet # Voids 2 Weight 83.461 kg 87.5 kg Results CBC & Chem 7: 12/23/22 07:56 12/23/22 07:56 Labs: Abnormal Lab Results - Last 24 Hours (Table) 12/22/22 12/22/22 12/23/22 Range/Units 18:52 22:41 07:56 Plt Count 130 L (150-450) k/uL Sodium 136 L (137-145) mmol/L Potassium 3.4 L (3.5-5.1) mmol/L Chloride (98-107) mmol/L Carbon Dioxide 15 L (22-30) mmol/L BUN 19 H (7-17) mg/dL Glucose 108 H (74-99) mg/dL Calcium (8.4-10.2) mg/dL AST 40 H (14-36) U/L ALT 35 H (4-34) U/L Total Protein (6.3-8.2) g/dL Ur Specific [place] >1.050 H (1.001-1.035) Urine Protein 1+ H (Negative) Ur Squamous Epith Cells 26 H (0-4) /hpf Urine Mucus Rare H (None) /hpf Urine Opiates Screen Detected H (NotDetected) Ur Amphetamines Screen Detected H (NotDetected) 12/23/22 Range/Units 07:56 Plt Count (150-450) k/uL Sodium (137-145) mmol/L Potassium (3.5-5.1) mmol/L Chloride 108 H (98-107) mmol/L Carbon Dioxide (22-30) mmol/L BUN (7-17) mg/dL Glucose 100 H (74-99) mg/dL Calcium 8.3 L (8.4-10.2) mg/dL AST 37 H (14-36) U/L ALT 40 H (4-34) U/L Total Protein 5.9 L (6.3-8.2) g/dL Ur Specific [place] (1.001-1.035) Urine Protein (Negative) Ur Squamous Epith Cells (0-4) /hpf Urine Mucus (None) /hpf Urine Opiates Screen (NotDetected) Ur Amphetamines Screen (NotDetected) Thrombosis Risk Factor Assmnt - Choose All That Apply Any of the Below Risk Factors Present?: Yes Each Factor Represents 1 point: Obesity (BMI >25) Thrombosis Risk Factor Assessment Total Risk Factor Score: 1 Thrombosis Risk Factor Assessment Level: Low Risk
--- NOTE | 2022-12-23 21:45 | XR ---
EXAMINATION: XR chest 2V: 12/23/2022 9:01 PM CLINICAL INDICATION: Short of breath TECHNIQUE: Departmental protocol COMPARISON: None FINDINGS: The lungs are clear. The pleural spaces are negative. The cardiac silhouette is mildly enlarged. The remainder of the mediastinal silhouette is unremarkabl e. The skeletal structures and soft tissues are negative for acute findings. IMPRESSION: No acute process.
[2022-12-24] MEDS ORDERED: LOSARTAN 50 MG TAB PO SCH ×2 (09:30→21:00)
[2022-12-24] MEDS: ENOXAPARIN 40 MG/0.4 ML SYRINGE SQ SCH (09:35)
[2022-12-24] MEDS: amLODIPine 10 MG TAB PO SCH (09:35)
--- NOTE | 2022-12-24 10:05 | CA ---
Transthoracic Echo Report Name: Yas Chaney Age: 37 Gender: F : 1985 Exam Date: 12/24/2022 07:35 Exam Location: [facility] Ht (in): 67 Wt (lb): 192 Ordering Physician: Óscar Holt MD Attending/Referring Phys: Insolvency Practitioner Santiago Mccall Procedure CPT: Indications: Hypertension, short of breath Cardiac Hx: Technical Quality: Fair Contrast 1: Total Dose (mL): Contrast 2: Total Dose (mL): MEASUREMENTS (Male / Female) Normal Values 2D ECHO LV Diastolic Diameter PLAX 4.5 cm 4.2 - 5.9 / 3.9 - 5.3 cm LV Systolic Diameter PLAX 3.4 cm IVS Diastolic Thickness 0.9 cm 0.6 - 1.0 / 0.6 - 0.9 cm LVPW Diastolic Thickness 1.1 cm 0.6 - 1.0 / 0.6 - 0.9 cm LV Relative Wall Thickness 0.5 RV Internal Dim ED PLAX 3.1 cm LVOT Diameter 1.9 cm Aortic Root Diameter 2.6 cm LA Systolic Diameter LX 3.2 cm 3.0 - 4.0 / 2.7 - 3.8 cm LV Diastolic Volume MOD BP 68.4 cm??? 67 - 155 / 56 - 104 cm??? LV Systolic Volume MOD BP 37.8 cm??? - 58 / 19 - 49 cm??? LV Ejection Fraction MOD BP 44.7 % >= 55 % LV Cardiac Index MOD BP 1296.1 cm???/min???m??? LV Diastolic Volume MOD 4C 65.4 cm??? LV Systolic Volume MOD 4C 36.1 cm??? LV Ejection Fraction MOD 4C 44.8 % LV Cardiac Index MOD 4C 1241.0 cm???/min???m??? LV Diastolic Length 4C 7.4 cm LV Systolic Length 4C 6.4 cm LV Diastolic Volume MOD 2C 71.5 cm??? LV Systolic Volume MOD 2C 39.6 cm??? LV Ejection Fraction MOD 2C 44.6 % LV Cardiac Index MOD 2C 1351.5 cm???/min???m??? LV Diastolic Length 2C 7.4 cm LV Systolic Length 2C 6.5 cm LA Volume 65.7 cm??? 18 - 58 / 22 - 52 cm??? DOPPLER AV Peak Velocity 118.8 cm/s AV Peak Gradient 5.6 mmHg LVOT Peak Velocity 87.3 cm/s LVOT Peak Gradient 3.1 mmHg AV Area Cont Eq pk 2.1 cm??? MR Peak Velocity 345.3 cm/s MR Peak Gradient 47.7 mmHg Mitral E Point Velocity 93.9 cm/s Mitral A Point Velocity 70.2 cm/s Mitral E to A Ratio 1.3 MV Deceleration Time 137.1 ms MV E' Velocity 6.2 cm/s Mitral E to MV E' Ratio 15.1 TR Peak Velocity 235.4 cm/s TR Peak Gradient 22.2 mmHg Right Ventricular Systolic Press 27.5 mmHg PV Peak Velocity 94.2 cm/s PV Peak Gradient 3.5 mmHg FINDINGS Left Ventricle Mildly increased posterior wall thickness. Moderately decreased left ventricular ejection fraction. Left ventricular ejection fraction is estimated at 45 %. Right Ventricle Normal right ventricular size. RVSP= 34mmhg. Right Atrium Normal right atrial size. Left Atrium Moderately increased left atrial volume. LA volume index= 33ml/m2 Mitral Valve Structurally normal mitral valve. Mild MR. Aortic Valve Trileaflet aortic valve. Trace AI. Tricuspid Valve Structurally normal tricuspid valve. Mild TR Pulmonic Valve Structurally normal pulmonic valve. No pulmonic regurgitation. Pericardium Normal pericardium. Aorta Normal size aortic root and proximal ascending aorta. CONCLUSIONS Normal LV size mild to moderate decrease in global contractility. Enlarged left atrium mild mitral and tricuspid regurgitation no pericardial effusion no significant pulmonary hypertension Previewed by: Dr. Fariha Souza MD (Electronically Signed) Final Date: 24 December 2022 10:05
[2022-12-24 10:43] LABS: Total Volume 24 Hour,Urine 1300 mls (800-1800)
--- NOTE | 2022-12-24 10:58 | P.PN ---
Subjective HISTORY OF PRESENT ILLNESS: This is a 37-year-old female with a past medical history significant for hypertension during 2 of her pregnancies. 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 We have been asked to see the patient in consultation for hypertension. Patient examined at the bedside. Patient presented to urgent care yesterday secondary to abdominal pain. The patient was found to have extremely elevated blood pressures with a systolic greater than 200 and was instructed to come to the emergency room. Patient's blood pressure on arrival was 245/175. She is also tachycardic with a heart rate are on 120. Patient also reports feeling short of breath with exertion. She denies any chest pain or pressure. She is a nonsmoker. She reports occasional alcohol use. The patient states she has not been on blood pressure medications and approximately 13 years. She states she was off of her blood pressure medication within 1 year of delivering her last child. * EKG reveals sinus mechanism with signs of LVH * Laboratory data: WBC 7.3. Hemoglobin 13.0. Platelet count 130. Sodium 138. Potassium 3.7. BUN 14. Creatinine 0.92. TSH 4.080. * Current home cardiac medications include none 12/24/2022 patient examined this morning at the bedside. Patient denies chest pain or pressure. She denies shortness of breath. Renal artery Doppler performed with no evidence of renal artery stenosis. Patient underwent echocardiogram revealing ejection fraction 45%, mild MR, mild TR PHYSICAL EXAM: VITAL SIGNS: Reviewed. GENERAL: Well-developed in no acute distress. HEENT: Head is normocephalic. Pupils are equal, round. Sclerae anicteric. Mucous membranes of the mouth are moist. Neck supple. No JVD or thyromegaly LUNGS: Respirations even and unlabored. Lungs essentially clear to auscultation bilaterally. HEART: Regular rate and rhythm. S1 and S2 heard. Soft systolic murmur noted ABDOMEN: Soft. Nondistended. Nontender. EXTREMITIES: Normal range of motion. No clubbing or cyanosis. Peripheral pulses intact. No lower extremity edema NEUROLOGIC: Awake and alert. Oriented x 3. ASSESSMENT: Abdominal pain Hypertensive emergency Hypokalemia History of hypertension in Drug screen positive for amphetamines PLAN: Continue amlodipine 10 mg daily Discontinue hydralazine Begin losartan 100 mg daily Patient instructed to refrain from amphetamines or any other stimulants If patient's blood pressure remains stable, she may be discharged home today from a cardiac standpoint Nurse practitioner note has been reviewed by physician. Signing provider agrees with the documented findings, assessment, and plan of care. Objective - Vital Signs Vital signs: Vital Signs Temp 97.9 F 12/24/22 09:30 Pulse 97 12/24/22 09:30 Resp 18 12/24/22 09:30 BP 160/127 12/24/22 09:30 Pulse Ox 98 12/24/22 09:30 FiO2 Intake & Output 12/23/22 12/24/22 12/24/22 18:59 06:59 18:59 Intake Total 118 240 Output Total 84 Balance 118 156 Weight 87.5 kg Intake: Oral 118 240 Output: Post Void Residual 84 Other: Voiding Method Toilet Toilet Toilet # Voids 2 1 - Labs CBC & Chem 7: 12/23/22 07:56 12/23/22 07:56
[2022-12-24 11:15] LABS: Total Protein 24 Hour,Urine 117 mg/24hr (42.0-225.0)
--- NOTE | 2022-12-24 11:51 | P.CNPUL ---
History of Present Illness Consult date: 12/24/22 Requesting physician: Óscar Holt Reason for consult: other (Abnormal CT of the chest) Chief complaint: Abdominal pain History of present illness: This is a 37-year-old female with history of gestational hypertension, history of thyroid nodule, patient presented to the ER with abdominal pain mostly in the right upper quadrant. Initially she was seen in urgent care, and she was noted to have significantly elevated blood pressure. Patient was advised to come to the ER. She required labetalol, IV hydralazine, orally she received amlodipine and hydralazine, patient was seen by cardiology, and she was seen by Dr. Holt. For some reason the patient had a CT angiogram of the chest, and it basically showed some nonspecific findings, minimal interstitial changes, and nonspecific mediastinal and hilar lymphadenopathy, maximum size of lymph nodes up to 1.6 cm. Patient had no pulmonary symptoms whatsoever, she'll had no previous history of sarcoidosis, however considering her abnormal CT of the chest this consult was initiated. CT of the abdomen and pelvis showed heterogeneous appearance of the liver otherwise the findings are unremarkable. At any rate I saw the patient today, reviewed her CT of the chest, and I felt the findings again are very nonspecific, and my only recommendation is to repeat CT of the chest on outpatient basis in 3-4 months and the patient to have outp atient follow-up with me in 3-4 months Review of Systems GEN.: Generalized weakness and tiredness EYES: Negative HEENT: Negative RESPIRATORY: Negative CARDIOVASCULAR: Negative GASTROINTESTINAL: Negative except for vague abdominal pain which has resolved since admission GENITOURINARY: Negative MUSCULOSKELETAL: Negative LYMPHATICS: Negative HEMATOLOGICAL: Negative PSYCHIATRY: Negative NEUROLOGICAL: Negative Past Medical History Past Medical History: No Reported History Additional Past Medical History / Comment(s): Nodule on thyroid History of Any Multi-Drug Resistant Organisms: None Reported Past Surgical History: No Surgical Hx Reported Additional Past Surgical History / Comment(s): Closed head injury Past Anesthesia/Blood Transfusion Reactions: No Reported Reaction Past Psychological History: No Psychological Hx Reported Smoking Status: Former smoker Past Alcohol Use History: Occasional Past Drug Use History: None Reported - Past Family History Mother Family Medical History: Hypertension, Thyroid Disorder Father Family Medical History: Hypertension Brother(s) Family Medical History: Hypertension Medications and Allergies Home Medications Medication Instructions Recorded Confirmed Type Omeprazole 20 mg PO DAILY PRN 12/22/22 12/22/22 History Allergies Allergy/AdvReac Type Severity Reaction Status Date / Time No Known Allergies Allergy Verified 12/22/22 19:56 Physical Exam Vitals: Vital Signs Temp Pulse Resp BP Pulse Ox 12/24/22 09:30 97.9 F 97 18 160/127 98 12/24/22 04:00 98.0 F 77 19 123/83 97 12/23/22 23:21 97.7 F 87 19 117/77 97 12/23/22 20:00 98.0 F 90 19 138/90 99 12/23/22 15:40 87 17 138/98 99 Intake and Output 12/23/22 12/24/22 12/24/22 22:59 06:59 14:59 Intake Total 118 240 Output Total 84 Balance 118 156 Intake: Oral 118 240 Output: Post Void Residual 84 Other: Voiding Method Toilet Toilet Toilet # Voids 1 1 Physical Exam: Revealed a 37-year-old female, pleasant, in no distress Head: Atraumatic, normocephalic. HEENT:[Neck is supple.] [No neck masses.] [No thyromegaly.] [No JVD.] Chest: [Clear throughout, no crackles, no rhonchi, no wheezes.] Cardiac Exam: [Normal S1 and S2, no S3 gallop, no murmur.] Abdomen: [Soft, nontender, no megaly, no rebound, no guarding, normal bowel sounds.] Extremities: [No clubbing, no edema, no cyanosis.] Neurological Exam: [No focal neurologic deficit.] Alert oriented 3 Psychiatric: Normal mood affect and normal mental status, musculoskeletal: No deformities and no limitation in range of motion Skin: No rash Results - Laboratory Findings CBC and BMP: 12/23/22 07:56 12/23/22 07:56 PT/INR, D-dimer PT 11.1 sec (9.0-12.0) 12/22/22 18:52 INR 1.1 (<1.2) 12/22/22 18:52 Abnormal lab findings: Abnormal Labs 12/22/22 12/22/22 12/23/22 18:52 22:41 07:56 Plt Count 130 L Sodium 136 L Potassium 3.4 L Chloride Carbon Dioxide 15 L BUN 19 H Glucose 108 H Calcium AST 40 H ALT 35 H Total Protein Ur Specific [place] >1.050 H Urine Protein 1+ H Ur Squamous Epith Cells 26 H Urine Mucus Rare H Urine Opiates Screen Detected H Ur Amphetamines Screen Detected H 12/23/22 07:56 Plt Count Sodium Potassium Chloride 108 H Carbon Dioxide BUN Glucose 100 H Calcium 8.3 L AST 37 H ALT 40 H Total Protein 5.9 L Ur Specific [place] Urine Protein Ur Squamous Epith Cells Urine Mucus Urine Opiates Screen Ur Amphetamines Screen - Diagnostic Findings Chest x-ray: image reviewed (No acute process) Additional studies: CT of the chest as noted in HPI, the findings are very nonspecific Renal artery duplex no evidence of renal artery stenosis Assessment and Plan Assessment: Impression: Hypertensive emergency Nonspecific findings on CT of the chest, mediastinal/hilar adenopathy could be quiescent sarcoidosis Hypokalemia Positive drug screen for amphetamines Recommendation: Agree with the present workup. Admitting physician Reviewed and discussed the CT of the chest findings with the patient again the findings are nonspecific and the patient has no active pulmonary symptoms Would recommend outpatient follow-up and repeat CT of the chest in 4 months. We'll clear the patient for discharge once she is cleared by other consultants Time with Patient: Greater than 30
--- NOTE | 2022-12-24 17:34 | P.PN ---
Progress Note - Text Progress Note Date: 12/24/22 Chief Complaint: Short of breath This is a pleasant 37-year-old patient. Follows with Dr. Peralta. Normally in good health. Rather radioactive. After her first patient did have some blood pressure. Then during the last trimester of the second she had to be in bedrest for blood pressure. A few weeks after she was on propranolol and blood pressure came back to normal. Subsequently patient been doing annual checkups and a blood pressure is normally good. Her last was about 13 years ago. Last 34 weeks patient been noticing some pain in the right upper quadrant and epigastrium with exertion. Which is progressively got ten worse. Most of the last 2 weeks. Non-walking 100 feet she rarely gets short of breath. Pain in the right upper quadrant. Also noticed some slight orthopnea. History decided to go to the urgent care. The pressure recorded was 2 37 x 1 77. Patient in the ER required IV labetalol. IV hydralazine. His morning patient received amlodipine 10 mg and hydralazine 50 mg. Patient's complete by her mother in the room. No chest pain per se. Patient has denied the use of amphetamines as it showed up in the urine. 12/24/2022: Medications listed by cardiology this morning. Patient on amlodipin e 10 mg. Hydralazine discontinued. Started on Cozaar. We will change Cozaar to p.m. dose. Add chlorthalidone 25 mg Active Medications Acetaminophen (Acetaminophen Tab 325 Mg Tab) 650 mg PO Q6HR PRN PRN Reason: Fever and/ or Mild Pain Last Admin: 12/23/22 08:23 Dose: 650 mg Amlodipine Besylate (Amlodipine 10 Mg Tab) 10 mg PO DAILY [facility] Last Admin: 12/24/22 09:35 Dose: 10 mg Enoxaparin Sodium (Enoxaparin 40 Mg/0.4 Ml Syringe) 40 mg SQ DAILY [facility] Last Admin: 12/24/22 09:35 Dose: 40 mg Losartan Potassium (Losartan 50 Mg Tab) 100 mg PO DAILY [facility] Last Admin: 12/24/22 09:35 Dose: 100 mg Naloxone HCl (Naloxone 0.4 Mg/Ml 1 Ml Vial) 0.2 mg IV Q2M PRN PRN Reason: Opioid Reversal Ondansetron HCl (Ondansetron 4 Mg/2 Ml Vial) 4 mg IVP Q8HR PRN PRN Reason: Nausea And Vomiting Last Admin: 12/23/22 08:25 Dose: 4 mg Past medical history to include: Thyroid nodule. Blood pressure associated with . Close head injury. Social history: Patient works at [employer]. Alcohol occasionally. No smoking. 2 daughters at home 13 and 15 years of age. Physical examination: VITAL SIGNS: 97.9, 102, 18, 1 62 x 1 17, 97% room air GENERAL: [BMI 30.2, sitting in bed comfortable EYES: Pupils equal. Conjunctiva normal. HEENT: External appearance of nose and ears normal, oral cavity grossly normal. Area of redness of the cheeks and over the bridge of the nose NECK: JVD not raised; masses not palpable. HEART: First and second heart sounds are normal; no edema. LUNGS: Respiratory rate normal; clear to auscultation. ABDOMEN: Soft, nontender, liver spleen not palpable, no masses palpable. PSYCH: Alert and oriented x3; mood and affect normal. MUSCULOSKELETAL:No Clubbing/cyanosis;muscles-grossly intact INVESTIGATIONS, reviewed in the clinical context: Urine total protein in 24-hour: 117 2-D echocardiogram: Enlarged left atrium. EF 45%. Ultrasound gallbladder: Nonspecific mild gallbladder wall thickening. Heterogenous liver parenchyma. No gallstones. Ultrasound renal artery duplex complaint: No evidence of renal artery stenosis. Nonobstructive left renal calculus. EKG tracing personally reviewed by me-normal sinus rhythm. ST segment depression through infertile lateral leads Chest CTA: Negative for PE. Reflux of contrast of the hepatic veins and diffuse is a tissue thickening along the bronchovascular bundle and diffuse smoked septal lines. May suggest pulmonary vascular congestion. Mediastinal hilar lymphadenopathy measuring up to 1.6 cm. White count 7.3 hemoglobin 13 platelets 1:30 sodium 138 ration 3.7 BUN 14 creatinine 0.9 to glucose 100 AST 37 ALT 40 UA protein 1+ Urine drug screen positive for opioids, amphetamines. TSH 4.0 Cortisol 9 ProBNP 5850 Assessment and plan: -This patient presents with 3-4 weeks of increasing shortness of breath with exertion. More so in the last 2 weeks. Also complaining of right upper quadrant pain epigastric pain with the same. Patient also has noticed some orthopnea. She has a prior history of blood pressure. Associated with . Otherwise has been in good health. Does not seem to have any other systemic symptoms of finding. Except for a rash on the face. Differential is large. Consider pheochromocytoma. Plasma metanephrines, free was collected this morning. Patient has slight proteinuria. Nonspecific lymphadenopathy in the chest. Sarcoidosis would be a differential. Especially given the shortness of breath. PE was ruled out. Associated with very high uncontrolled blood pressure. Consultation to cardiology.. Pulmonary. -Accelerated hypertension Rule out secondary causes. Amlodipine 10 mg a day. Hydralazine discontinued. Cozaar 100 mg day. Add chlorthalidone -Proteinuria We will do a microalbumin urea creatinine ratio. -Plasma free metanephrines results pending Discussed with patient.
[2022-12-24] MEDS: CHLORTHALIDONE 25 MG TAB PO SCH (18:32)
[2022-12-24] MEDS: LOSARTAN 50 MG TAB PO SCH (19:44)
[2022-12-25] MEDS: ENOXAPARIN 40 MG/0.4 ML SYRINGE SQ SCH (08:03)
[2022-12-25] MEDS: amLODIPine 10 MG TAB PO SCH (08:03)
[2022-12-25] MEDS: CHLORTHALIDONE 25 MG TAB PO SCH (08:03)
--- NOTE | 2022-12-25 10:10 | P.PN ---
Subjective Progress Note Date: 12/25/22 Principal diagnosis: Hypertensive emergency This is a 37-year-old female with history of gestational hypertension, history of thyroid nodule, patient presented to the ER with abdominal pain mostly in the right upper quadrant. Initially she was seen in urgent care, and she was noted to have significantly elevated blood pressure. Patient was advised to come to the ER. She required labetalol, IV hydralazine, orally she received amlodipine and hydralazine, patient was seen by cardiology, and she was seen by Dr. Holt. For some reason the patient had a CT angiogram of the chest, and it basically showed some nonspecific findings, minimal interstitial changes, and nonspecific mediastinal and hilar lymphadenopathy, maximum size of lymph nodes up to 1.6 cm. Patient had no pulmonary symptoms whatsoever, she'll had no previous history of sarcoidosis, however considering her abnormal CT of the chest this consult was initiated. CT of the abdomen and pelvis showed hetero geneous appearance of the liver otherwise the findings are unremarkable. At any rate I saw the patient today, reviewed her CT of the chest, and I felt the findings again are very nonspecific, and my only recommendation is to repeat CT of the chest on outpatient basis in 3-4 months and the patient to have outpatient follow-up with me in 3-4 months reevaluated today on 12/25/2022, patient is doing well, asymptomatic, no active pulmonary symptoms, blood pressure seems to be better controlled and that being addressed by cardiology. Patient is on room air, asymptomatic hoping she will be discharged home today Objective - Vital Signs Vital signs: Vital Signs Temp 98.2 F 12/25/22 04:00 Pulse 87 12/25/22 04:00 Resp 18 12/25/22 04:00 BP 144/96 12/25/22 04:00 Pulse Ox 96 12/25/22 04:00 FiO2 Intake & Output 12/24/22 12/25/22 12/25/22 18:59 06:59 18:59 Intake Total 1020 Output Total 84 Balance 936 Intake: Oral 1020 Output: Post Void Residual 84 Other: Voiding Method Toilet Toilet # Voids 2 - Exam Physical Exam: Revealed a 37-year-old female, pleasant, in no distress Head: Atraumatic, normocephalic. HEENT:[Neck is supple.] [No neck masses.] [No thyromegaly.] [No JVD.] Chest: [Clear throughout, no crackles, no rhonchi, no wheezes.] Cardiac Exam: [Normal S1 and S2, no S3 gallop, no murmur.] Abdomen: [Soft, nontender, no megaly, no rebound, no guarding, normal bowel sounds.] Extremities: [No clubbing, no edema, no cyanosis.] Neurological Exam: [No focal neurologic deficit.] Alert oriented 3 Psychiatric: Normal mood affect and normal mental status, musculoskeletal: No deformities and no limitation in range of motion Skin: No rash - Labs CBC & Chem 7: 12/23/22 07:56 12/23/22 07:56 Labs: Abnormal Lab Results - Last 24 Hours (Table) 12/23/22 Range/Units 06:00 Ur Random Microalbumin 3.0 H (0.0-1.9) mg/dL Assessment and Plan Assessment: Impression: Hypertensive emergency Nonspecific findings on CT of the chest, mediastinal/hilar adenopathy could be quiescent sarcoidosis Hypokalemia Positive drug screen for amphetamines Recommendation: Will clear the patient to be discharged home if cleared by other consultants Follow-up with me in form Time with Patient: Less than 30
--- NOTE | 2022-12-25 11:41 | P.PN ---
Subjective Progress Note Date: 12/25/22 This is Angel Strauss NP, I'm dictating on behalf of Dr. Blanchard's H&P and A&P. Patient was interviewed and examined. Patient is a pleasant 37-year-old female who presented to the hospital hypertensive emergency. Patient reports today that she's feeling okay at this time. Her blood pressure has continued to fluctuate. Patient was recently started on losartan yesterday. Is going to take a few days for these medications to get in her system and begin to positively affect her blood pressure. It is noted that her blood pressure is significantly improved from admission. Patient currently is denying any chest pain, heart palpitations, or shortness of breath. GENERAL: Well-appearing, well-nourished and in no acute distress. NECK: Supple without JVD or thyromegaly. LUNGS: Breath sounds clear to auscultation bilaterally. Respiration equal and unlabored. No wheezes, rales or rhonchi. HEART: Regular rate and rhythm without murmurs, rubs or gallops. S1 and S2 heard. EXTREMITIES: Normal range of motion, no edema. No clubbing or cyanosis. Peripheral pulses intact and strong. VITALS: Temp 98.1, pulse 98, respirations 17, blood pressure 154/112, O2 saturation 97% on room air TELEMETRY: Normal sinus rhythm LABS: No new labs since 12/23/2022 IMPRESSION: 1. Abdominal pain 2. Hypertensive emergency 3. Hypokalemia 4. History of hypertension of 5. Drug screen positive for amphetamines PLAN: Continue amlodipine, and losartan. Patient may be discharged on her current cardiac medication regimen. Patient should follow with Dr. Blanchard within one week. No further recommendations. Objective - Vital Signs Vital signs: Vital Signs Temp 98.1 F 12/25/22 08:00 Pulse 98 12/25/22 08:00 Resp 17 12/25/22 08:00 BP 154/112 12/25/22 08:00 Pulse Ox 97 12/25/22 08:00 FiO2 Intake & Output 12/24/22 12/25/22 12/25/22 18:59 06:59 18:59 Intake Total 1020 Output Total 84 Balance 936 Intake: Oral 1020 Output: Post Void Residual 84 Other: Voiding Method Toilet Toilet Toilet # Voids 2 - Labs CBC & Chem 7: 12/23/22 07:56 12/23/22 07:56 Labs: Abnormal Lab Results - Last 24 Hours (Table) 12/23/22 Range/Units 06:00 Ur Random Microalbumin 3.0 H (0.0-1.9) mg/dL
[2022-12-25] MEDS: carvediloL 6.25 MG TAB PO SCH ×2 (12:48→16:47)
--- NOTE | 2022-12-25 17:10 | P.PN ---
Progress Note - Text Progress Note Date: 12/25/22 Chief Complaint: Short of breath This is a pleasant 37-year-old patient. Follows with Dr. Peralta. Normally in good health. Rather radioactive. After her first patient did have some blood pressure. Then during the last trimester of the second she had to be in bedrest for blood pressure. A few weeks after she was on propranolol and blood pressure came back to normal. Subsequently patient been doing annual checkups and a blood pressure is normally good. Her last was about 13 years ago. Last 34 weeks patient been noticing some pain in the right upper quadrant and epigastrium with exertion. Which is progressively got ten worse. Most of the last 2 weeks. Non-walking 100 feet she rarely gets short of breath. Pain in the right upper quadrant. Also noticed some slight orthopnea. History decided to go to the urgent care. The pressure recorded was 2 37 x 1 77. Patient in the ER required IV labetalol. IV hydralazine. His morning patient received amlodipine 10 mg and hydralazine 50 mg. Patient's complete by her mother in the room. No chest pain per se. Patient has denied the use of amphetamines as it showed up in the urine. 12/24/2022: Medications listed by cardiology this morning. Patient on amlodipin e 10 mg. Hydralazine discontinued. Started on Cozaar. We will change Cozaar to p.m. dose. Add chlorthalidone 25 mg 12/25/2022: Blood pressure still running high. We'll add labetalol 200 mg twice a day. We'll another 24 hours. Confirmed with patient she was taking Adipex at home for weight loss. Did lose about 30 pounds. She took this to the end of November. Now discontinued. Active Medications Acetaminophen (Acetaminophen Tab 325 Mg Tab) 650 mg PO Q6HR PRN PRN Reason: Fever and/ or Mild Pain Last Admin: 12/23/22 08:23 Dose: 650 mg Amlodipine Besylate (Amlodipine 10 Mg Tab) 10 mg PO DAILY [facility] Last Admin: 12/25/22 08:03 Dose: 10 mg Chlorthalidone (Chlorthalidone 25 Mg Tab) 25 mg PO DAILY [facility]PL[facility] Last Admin: 12/25/22 08:03 Dose: 25 mg Enoxaparin Sodium (Enoxaparin 40 Mg/0.4 Ml Syringe) 40 mg SQ DAILY REPLACED BY [facility] Last Admin: 12/25/22 08:03 Dose: 40 mg Labetalol HCl (Labetalol 200 Mg Tab) 200 mg PO BID REPLACED BY [facility] Losartan Potassium (Losartan 50 Mg Tab) 100 mg PO HS REPLACED BY [facility] Last Admin: 12/24/22 19:44 Dose: 100 mg Naloxone HCl (Naloxone 0.4 Mg/Ml 1 Ml Vial) 0.2 mg IV Q2M PRN PRN Reason: Opioid Reversal Ondansetron HCl (Ondansetron 4 Mg/2 Ml Vial) 4 mg IVP Q8HR PRN PRN Reason: Nausea And Vomiting Last Admin: 12/23/22 08:25 Dose: 4 mg Past medical history to include: Thyroid nodule. Blood pressure associated with . Close head injury. Social history: Patient works at [employer]. Alcohol occasionally. No smoking. 2 daughters at home 13 and 15 years of age. Physical examination: VITAL SIGNS: 98.1, 91, 17, 1 69 x 1 34, 98% room air GENERAL: [BMI 30.2, sitting in bed comfortable EYES: Pupils equal. Conjunctiva normal. HEENT: External appearance of nose and ears normal, oral cavity grossly normal. Area of redness of the cheeks and over the bridge of the nose NECK: JVD not raised; masses not palpable. HEART: First and second heart sounds are normal; no edema. LUNGS: Respiratory rate normal; clear to auscultation. ABDOMEN: Soft, nontender, liver spleen not palpable, no masses palpable. PSYCH: Alert and oriented x3; mood and affect normal. MUSCULOSKELETAL:No Clubbing/cyanosis;muscles-grossly intact INVESTIGATIONS, reviewed in the clinical context: Urine total protein in 24-hour: 117 2-D echocardiogram: Enlarged left atrium. EF 45%. Ultrasound gallbladder: Nonspecific mild gallbladder wall thickening. Heterogenous liver parenchyma. No gallstones. Ultrasound renal artery duplex complaint: No evidence of renal artery stenosis. Nonobstructive left renal calculus. EKG tracing personally reviewed by me-normal sinus rhythm. ST segment depression through infertile lateral leads Chest CTA: Negative for PE. Reflux of contrast of the hepatic veins and diffuse is a tissue thickening along the bronchovascular bundle and diffuse smoked septal lines. May suggest pulmonary vascular congestion. Mediastinal hilar lymphadenopathy measuring up to 1.6 cm. White count 7.3 hemoglobin 13 platelets 1:30 sodium 138 ration 3.7 BUN 14 creatinine 0.9 to glucose 100 AST 37 ALT 40 UA protein 1+ Urine drug screen positive for opioids, amphetamines. TSH 4.0 Cortisol 9 ProBNP 5850 Assessment and plan: -This patient presents with 3-4 weeks of increasing shortness of breath with exertion. More so in the last 2 weeks. Also complaining of right upper quadrant pain epigastric pain with the same. Patient also has noticed some orthopnea. She has a prior history of blood pressure. Associated with . Otherwise has been in good health. Does not seem to have any other systemic symptoms of finding. Except for a rash on the face. Differential is large. Consider pheochromocytoma. Plasma metanephrines, free was collected this morning. Patient has slight proteinuria. Nonspecific lymphadenopathy in the chest. Sarcoidosis would be a differential. Especially given the shortness of breath. PE was ruled out. Associated with very high uncontrolled blood pressure. Following with cardiology.. Pulmonary. -Patient was taking Adipex upper end of November for weight loss. Now discontinued. Therefore positive for amphetamines in the urine -Accelerated hypertension Rule out secondary causes. Amlodipine 10 mg a day. Hydralazine discontinued. Cozaar 100 mg day. chlorthalidone 25 mg Add labetalol 200 mg twice a day -Proteinuria We will do a microalbumin urea creatinine ratio. -Plasma free metanephrines results pending Discussed with patient. Add labetalol.
[2022-12-25] MEDS: LABETALOL 200 MG TAB PO SCH (20:38)
[2022-12-25] MEDS: LOSARTAN 50 MG TAB PO SCH (20:38)
[2022-12-26] MEDS: amLODIPine 10 MG TAB PO SCH (08:06)
[2022-12-26] MEDS: ENOXAPARIN 40 MG/0.4 ML SYRINGE SQ SCH (08:06)
[2022-12-26] MEDS: LABETALOL 200 MG TAB PO SCH (08:06)
[2022-12-26] MEDS: CHLORTHALIDONE 25 MG TAB PO SCH (08:06)
[2022-12-26] MEDS ORDERED: LABETALOL 100 MG TAB PO SCH (13:00)
--- NOTE | 2022-12-26 14:09 | P.PN ---
Progress Note - Text Progress Note Date: 12/26/22 Chief Complaint: Short of breath This is a pleasant 37-year-old patient. Follows with Dr. Peralta. Normally in good health. Rather radioactive. After her first patient did have some blood pressure. Then during the last trimester of the second she had to be in bedrest for blood pressure. A few weeks after she was on propranolol and blood pressure came back to normal. Subsequently patient been doing annual checkups and a blood pressure is normally good. Her last was about 13 years ago. Last 34 weeks patient been noticing some pain in the right upper quadrant and epigastrium with exertion. Which is progressively got ten worse. Most of the last 2 weeks. Non-walking 100 feet she rarely gets short of breath. Pain in the right upper quadrant. Also noticed some slight orthopnea. History decided to go to the urgent care. The pressure recorded was 2 37 x 1 77. Patient in the ER required IV labetalol. IV hydralazine. His morning patient received amlodipine 10 mg and hydralazine 50 mg. Patient's complete by her mother in the room. No chest pain per se. Patient has denied the use of amphetamines as it showed up in the urine. 12/24/2022: Medications listed by cardiology this morning. Patient on amlodipin e 10 mg. Hydralazine discontinued. Started on Cozaar. We will change Cozaar to p.m. dose. Add chlorthalidone 25 mg 12/25/2022: Blood pressure still running high. We'll add labetalol 200 mg twice a day. We'll another 24 hours. Confirmed with patient she was taking Adipex at home for weight loss. Did lose about 30 pounds. She took this to the end of November. Now discontinued. 12/26/2022: Diastolic blood pressure still elevated. We will increase labetalol to 300 mg twice a day. Otherwise patient feeling well. Consult nephrology for input for blood pressure. Active Medications Acetaminophen (Acetaminophen Tab 325 Mg Tab) 650 mg PO Q6HR PRN PRN Reason: Fever and/ or Mild Pain Last Admin: 12/23/22 08:23 Dose: 650 mg Amlodipine Besylate (Amlodipine 10 Mg Tab) 10 mg PO DAILY [facility] Last Admin: 12/26/22 08:06 Dose: 10 mg Chlorthalidone (Chlorthalidone 25 Mg Tab) 25 mg PO DAILY [facility] Last Admin: 12/26/22 08:06 Dose: 25 mg Enoxaparin Sodium (Enoxaparin 40 Mg/0.4 Ml Syringe) 40 mg SQ DAILY [facility] Last Admin: 12/26/22 08:06 Dose: 40 mg Labetalol HCl (Labetalol 100 Mg Tab) 300 mg PO BID [facility] Losartan Potassium (Losartan 50 Mg Tab) 100 mg PO HS [facility] Last Admin: 12/25/22 20:38 Dose: 100 mg Naloxone HCl (Naloxone 0.4 Mg/Ml 1 Ml Vial) 0.2 mg IV Q2M PRN PRN Reason: Opioid Reversal Ondansetron HCl (Ondansetron 4 Mg/2 Ml Vial) 4 mg IVP Q8HR PRN PRN Reason: Nausea And Vomiting Last Admin: 12/23/22 08:25 Dose: 4 mg Past medical history to include: Thyroid nodule. Blood pressure associated with . Close head injury. Social history: Patient works at [employer]. Alcohol occasionally. No smoking. 2 daughters at home 13 and 15 years of age. Physical examination: VITAL SIGNS: 98, 82, 18, 1 55 x 1 20, 97% room air GENERAL: Up in bed, comfortable EYES: Pupils equal. Conjunctiva normal. HEENT: External appearance of nose and ears normal, oral cavity grossly normal. Area of redness of the cheeks and over the bridge of the nose NECK: JVD not raised; masses not palpable. HEART: First and second heart sounds are normal; no edema. LUNGS: Respiratory rate normal; clear to auscultation. ABDOMEN: Soft, nontender, liver spleen not palpable, no masses palpable. PSYCH: Alert and oriented x3; mood and affect normal. INVESTIGATIONS, reviewed in the clinical context: Cortisol 9 aldosterone 8.9. Direct 40.6 Urine total protein in 24-hour: 117 2-D echocardiogram: Enlarged left atrium. EF 45%. Ultrasound gallbladder: Nonspecific mild gallbladder wall thickening. Heterogenous liver parenchyma. No gallstones. Ultrasound renal artery duplex complaint: No evidence of renal artery stenosis. Nonobstructive left renal calculus. EKG tracing personally reviewed by me-normal sinus rhythm. ST segment dep ression through infertile lateral leads Chest CTA: Negative for PE. Reflux of contrast of the hepatic veins and diffuse is a tissue thickening along the bronchovascular bundle and diffuse smoked sept al lines. May suggest pulmonary vascular congestion. Mediastinal hilar lymphadenopathy measuring up to 1.6 cm. White count 7.3 hemoglobin 13 platelets 1:30 sodium 138 ration 3.7 BUN 14 creatinine 0.9 to glucose 100 AST 37 ALT 40 UA protein 1+ Urine drug screen positive for opioids, amphetamines. TSH 4.0 Cortisol 9 ProBNP 5850 Assessment and plan: -This patient presents with 3-4 weeks of increasing shortness of breath with exertion. More so in the last 2 weeks. Also complaining of right upper quadrant pain epigastric pain with the same. Patient also has noticed some orthopnea. She has a prior history of blood pressure. Associated with . Otherwise has been in good health. Does not seem to have any other systemic symptoms of finding. Except for a rash on the face. Differential is large. Consider pheochromocytoma. Plasma metanephrines, free was collected this morning. Patient has slight proteinuria. Nonspecific lymphadenopathy in the chest. Sarcoidosis would be a differential. Especially given the shortness of breath. PE was ruled out. Associated with very high uncontrolled blood pressure. Following with cardiology.. Pulmonary. -Patient was taking Adipex until end of November for weight loss. Now discontinued. Therefore positive for amphetamines in the urine -Accelerated hypertension Rule out secondary causes. Amlodipine 10 mg a day. Hydralazine discontinued. Cozaar 100 mg daily at bedtime chlorthalidone 25 mg Increase labetalol 300 mg twice a day -Proteinuria We will do a microalbumin urea creatinine ratio. -Plasma free metanephrines results pending Discussed with patient. Increase labetalol. Consult nephrology for help for blood pressure monitoring.
[2022-12-26] MEDS: LABETALOL 100 MG TAB PO SCH (20:48)
[2022-12-26] MEDS: LOSARTAN 50 MG TAB PO SCH (22:41)
[2022-12-27] MEDS: amLODIPine 10 MG TAB PO SCH (08:08)
[2022-12-27] MEDS: LABETALOL 100 MG TAB PO SCH ×2 (08:08→20:41)
[2022-12-27] MEDS: CHLORTHALIDONE 25 MG TAB PO SCH (08:08)
[2022-12-27] MEDS: ENOXAPARIN 40 MG/0.4 ML SYRINGE SQ SCH (08:08)
--- NOTE | 2022-12-27 10:58 | CT ---
EXAM: CT angio renal artery EXAM DATE AND TIME: HISTORY:r/o bilateral renal artery stenosis PROCEDURE: Contrast enhanced transaxial sections were obtained through the abdomen. Sagittal and janett nal reformations were constructed. CONTRAST: 100 mL of Isovue-370 was given IV. No immediate adverse reaction to the contrast material was reported. COMPARISON: None available. FINDINGS: IMAGED PORTION OF THE CHEST The imaged portion of the chest is unremarkable. ABDOMEN OVERVIEW: The images in this region are of adequate diagnostic quality. LIVER: Unremarkable. BILE DUCTS: Unremarkable. GALLBLADDER: Unremarkable. PANCREAS: Unremarkable. SPLEEN: Unremarkable. ADRENAL GLANDS: Unremarkable. RIGHT KIDNEY: Focal renal lesions are seen. There 2 right-sided renal arteries. The dominant sabas ry appears to supply the upper pole and interpolar region or diminutive second artery supplies the lo wer pole. There is no evidence of renal artery stenosis on this side. RIGHT URETER: The imaged portion is unremarkable. LEFT KIDNEY: There are 2 left-sided renal arteries. The larger of the renal arteries supplies the upper pole and interpolar region and more diminutive artery supplies the lower pole. There is no marc dence of stenosis. LEFT URETER: The imaged portion is unremarkable. ABDOMINAL AORTA: Unremarkable. ABDOMINAL VENOUS SYSTEM: Unremarkable. ABDOMINAL LYMPH NODES: Unremarkable. STOMACH: Unremarkable. SMALL BOWEL: The imaged portion has an unremarkable appearance. APPENDIX: The imaged portion has an unremarkable appearance. LARGE BOWEL: The imaged portion has an unremarkable appearance. MESENTERY AND OMENTUM: Unremarkable. PERITONEUM: Unremarkable. IMAGED PORTION OF THE PELVIS The imaged portion of the pelvis is unremarkable. MUSCULOSKELETAL AND SUPERFICIAL TISSUES BONES: Unremarkable. IMAGED SOFT TISSUES OF THE BODY WALL: Unremarkable. IMPRESSION 1. Dual renal arteries bilaterally with no evidence of stenosis as described above. 2. No acute findings otherwise seen.
--- NOTE | 2022-12-27 11:55 | P.PN ---
Subjective This is a pleasant 37-year-old patient. Follows with Dr. Peralta. Normally in good health. Rather radioactive. After her first patient did have some blood pressure. Then during the last trimester of the second she had to be in bedrest for blood pressure. A few weeks after she was on propranolol and blood pressure came back to normal. Subsequently patient been doing annual checkups and a blood pressure is normally good. Her last was about 13 years ago. Last 34 weeks patient been noticing some pain in the right upper quadrant and epigastrium with exertion. Which is progressively gotten worse. Most of the last 2 weeks. Non-walking 100 feet she rarely gets short of breath. Pain in the right upper quadrant. Also noticed some slight orthopnea. History decided to go to the urgent care. The pressure recorded was 2 37 x 1 77. Patient in the ER required IV labetalol. IV hydralazine. His morning patient received amlodipine 10 mg and hydralazine 50 mg. Patient's complete by her mother in the room. No chest pain per se. Patient has denied the use of amphetamines as it showed up in the urine. 12/24/2022: Medications listed by cardiology this morning. Patient on amlodipine 10 mg. Hydralazine discontinued. Started on Cozaar. We will change Cozaar to p.m. dose. Add chlorthalidone 25 mg 12/25/2022: Blood pressure still running high. We'll add labetalol 200 mg twice a day. We'll another 24 hours. Confirmed with patient she was taking Adipex at home for weight loss. Did lose about 30 pounds. She took this to the end of November. Now discontinued. 12/26/2022: Diastolic blood pressure still elevated. We will increase labetalol to 300 mg twice a day. Otherwise patient feeling well. Consult nephrology for input for blood pressure. 12/27/2022 This is a pleasant 37 years old female who presents with hypertensive urgency. Also she had some mild upper abdominal pain which is gone now she eats well. She had a normal bowel movement that she describes. Patient denies any other signs symptoms and she wants to go home but she understands the need to control her blood pressure and taking medication. Importance of adherence to medication also explained to the patient extensively. Nephrology team are consulted and they ordered a serum creatinine and aldosterone which is pending renal angiogram was unremarkable. Also I told the patient about her 1.7 cm liver lesions and need to repeat imaging in 3 months and she is agreeable Also we told her about her hilar and mediastinal lymphadenopathy, she told me she talk with Dr. Hudson who told her to follow up with him to repeat imaging in 4 months as per patient, however patient was instructed to follow up with Dr. Wiilam plascencia upon discharge in 3-4 weeks and she is agreeable. Also she is agreeable to follow-up with Dr. Brown grommet machine operator in 1 week. However we going to keep monitoring for now to further workup. Objective - Vital Signs Vital signs: Vital Signs Temp 97.8 F 12/27/22 11:28 Pulse 87 12/27/22 11:28 Resp 16 12/27/22 11:28 BP 149/114 12/27/22 11:28 Pulse Ox 99 12/27/22 11:28 FiO2 Intake & Output 12/26/22 12/27/22 12/27/22 18:59 06:59 18:59 Intake Total 702 120 Balance 702 120 Intake: Oral 702 120 Other: Voiding Method Toilet Toilet # Voids 3 1 1 - Exam GENERAL: The patient is alert and oriented x3, not in any acute distress. Well developed, well nourished. HEENT: Pupils are round and equally reacting to light. EOMI. No scleral icterus. No conjunctival pallor. Normocephalic, atraumatic. No pharyngeal erythema. No thyromegaly. CARDIOVASCULAR: S1 and S2 present. No murmurs, rubs, or gallops. PULMONARY: Chest is clear to auscultation, no wheezing , no crackles. ABDOMEN: Soft, nontender, nondistended, normoactive bowel sounds. No palpable organomegaly. MUSCULOSKELETAL: No joint swelling or deformity. EXTREMITIES: No cyanosis, clubbing, or pedal edema. NEUROLOGICAL: Gross neurological examination did not reveal any focal deficits. SKIN: No rashes. no petechiae. - Labs CBC & Chem 7: 12/23/22 07:56 12/23/22 07:56 Assessment and Plan Assessment: Hypertensive urgency Right liver lesion 1.7 cm, follow-up in 2-3 months. Patient is aware Hilar and mediastinal lymphadenopathy, follow-up as an outpatient with lease analyst and patient is agreeable Mild thrombocytopenia Plan: Continue with for blood pressure medication including Norvasc, chlorthalidone, labetalol and losartan Monitor blood pressure Importance of adherence to therapy risks explained to the patient as well as the need for close outpatient follow-up and she is agreeable. Cardiology signs of the case, both pulmonary and cartilage surface cleared the patient for discharge Nephrology team on the case Follow-up of the sterile/running Labs and medication were reviewed.. Continue same treatment. Continue with symptomatic treatment. Resume home medication. Monitor labs and vitals. DVT and GI prophylaxis. Further recommendations as per clinical course of the patient DVT prophylaxis: Subcutaneous Lovenox GI Prophylaxis: Pepcid Prognosis is guarded
--- NOTE | 2022-12-27 11:59 | P.NPCON ---
History of Present Illness - Reason for Consult accelerated hypertension - History of Present Illness Patient is a 37-year-old female who is admitted to the hospital with complaints of extremely elevated blood pressure as outpatient. It was 237/177. Patient states that she had been having abdominal pain for 2-3 days and was seen at her PCPs office where blood pressure was noted to be significantly elevated and she was advised to go to the ER. Patient reports history of hypertension with her 2 pregnancies 15 years ago and 13 years ago. Antihypertensive medications were discontinued 1-1/2 year after last 13 years ago. Last blood pressure check about 6 months ago was normal per patient. Patient has complained of some flushing. She denied any palpitations no dizziness or lightheadedness. No history of excessive sweating in the palms. Patient admitted to use of NSAIDs 1 or 2 times prior to admission. Patient did report increased stress level at work recently. Strong family history of hypertension with 35-year-old brother also diagnosed with hypertension for a few years now. Potassium was low at 3.[address] of the abdomen did not reveal any significant abnormal findings in the liver or gallbladder or kidneys. TSH was 4 Patient denies use of any drugs. Currently maintained on Cozaar 100 mg daily, Trandate 300 mg twice a day and chlorthalidone 25 mg daily with Norvasc 10 mg daily. Diastolic blood pressure remains elevated at 108-140 mmHg. Overall patient states she is feeling much better and denies any abdominal pain. Review of Systems As per HPI Past Medical History Past Medical History: No Reported History Additional Past Medical History / Comment(s): Nodule on thyroid History of Any Multi-Drug Resistant Organisms: None Reported Past Surgical History: No Surgical Hx Reported Additional Past Surgical History / Comment(s): Closed head injury Past Anesthesia/Blood Transfusion Reactions: No Reported Reaction Past Psychological History: No Psychological Hx Reported Smoking Status: Former smoker Past Alcohol Use History: Occasional Past Drug Use History: None Reported - Past Family History Mother Family Medical History: Hypertension, Thyroid Disorder Father Family Medical History: Hypertension Brother(s) Family Medical History: Hypertension Medications and Allergies Home Medications Medication Instructions Recorded Confirmed Type Omeprazole 20 mg PO DAILY PRN 12/22/22 12/22/22 History Allergies Allergy/AdvReac Type Severity Reaction Status Date / Time No Known Allergies Allergy Verified 12/22/22 19:56 Physical Exam Vitals: Vital Signs Temp Pulse Resp BP Pulse Ox 12/27/22 11:28 97.8 F 87 16 149/114 99 12/27/22 08:00 97.6 F 86 18 157/117 98 12/27/22 04:00 97.9 F 84 18 146/108 96 12/27/22 02:00 80 18 12/27/22 00:00 98.2 F 80 18 130/91 97 12/26/22 20:00 98.1 F 98 18 162/126 98 12/26/22 16:00 92 18 155/124 99 Intake and Output 12/26/22 12/27/22 12/27/22 22:59 06:59 14:59 Intake Total 240 120 Balance 240 120 Intake: Oral 240 120 Other: Voiding Method Toilet Toilet # Voids 3 1 1 Patient is awake, comfortable, in no acute distress Some flushing noted bilateral cheeks Examination of the heart S1 and S2 Examination of the lungs bilateral breath sounds are heard Abdomen is soft nontender Examination of lower extremity shows no evidence of edema OPHTHALMOLOGIST RETINA SPECIALIST examination is grossly intact no tremors noted. Results - Lab Results Most recent lab results Calcium 8.3 mg/dL (8.4-10.2) L 12/23/22 07:56 Phosphorus 4.3 mg/dL (2.5-4.5) 12/23/22 07:56 Magnesium 1.9 mg/dL (1.6-2.3) 12/23/22 07:56 12/23/22 07:56 12/23/22 07:56 Assessment and Plan Assessment: 1. Accelerated hypertension. Blood pressure is better controlled but remains elevated. Continue current medications. Workup for secondary causes in progress. Potassium was low on initial admission and therefore workup for hyperaldosteronism has been ordered as well. Patient denies history of use of drugs. She did admit to use of NSAIDs prior to admission however not on a synchro assembler divina basis. Positive history of hypertension with 2 pregnancies. Patient was able to come off of antihypertensive medications about 1-1/2 year after her last 13 years ago. 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 2. Hypokalemia status post replacement 3. Abdominal pain currently improved no significant abnormalities noted on CT of the abdomen and pelvis 4. Dyspnea related to uncontrolled hypertension 5. Cardiomyopathy with EF noted at 45%. Plan: Continue current medications. Increase chlorthalidone to 50 mg daily Check serum aldosterone and renin levels Patient is advised to avoid use of NSAIDs Check renal artery angiogram Check plasma free metanephrine levels Discussed lifestyle modification and dietary changes with patient. Thank you for the consultation. We will continue to follow the patient with you during her hospitalization.
[2022-12-27] MEDS: LOSARTAN 50 MG TAB PO SCH (20:41)
[2022-12-27] MEDS: FAMOTIDINE 20 MG/2 ML VIAL IV SCH (20:42)
[2022-12-28] MEDS: LABETALOL 100 MG TAB PO SCH (07:58)
[2022-12-28] MEDS: amLODIPine 10 MG TAB PO SCH (07:59)
[2022-12-28] MEDS: FAMOTIDINE 20 MG/2 ML VIAL IV SCH (07:59)
[2022-12-28] MEDS: ENOXAPARIN 40 MG/0.4 ML SYRINGE SQ SCH (07:59)
[2022-12-28] MEDS: CHLORTHALIDONE 25 MG TAB PO SCH (07:59)
[2022-12-28 12:15] VITALS: BP 128/88; PULSE 71; RESP 16; TEMP 98
--- NOTE | 2022-12-28 12:26 | P.PN ---
Subjective Patient is seen for follow-up for uncontrolled hypertension. Blood pressure is better controlled. So far all workup is negative. Serum aldosterone and renin levels are pending. Renal angiogram was negative for renal artery stenosis. Urine drug screen was positive for amphetamines and opiates but patient states that she was on Adipex and she did receive morphine in the ER No complaints today. Blood pressure 128/88. Diastolic blood pressure still staying slightly on the high side. I will increase the chlorthalidone to 50 mg daily. Objective - Vital Signs Vital signs: Vital Signs Temp 98 F 12/28/22 12:00 Pulse 71 12/28/22 12:00 Resp 16 12/28/22 12:00 BP 128/88 12/28/22 12:00 Pulse Ox 98 12/28/22 12:00 FiO2 Intake & Output 12/27/22 12/28/22 12/28/22 18:59 06:59 18:59 Intake Total 360 10 118 Balance 360 10 118 Intake: IV 10 0.9 10 Oral 360 118 Other: Voiding Method Toilet # Voids 1 1 - Exam Patient is awake, comfortable, in no acute distress Some flushing noted bilateral cheeks Examination of the heart S1 and S2 Examination of the lungs bilateral breath sounds are heard Abdomen is soft nontender Examination of lower extremity shows no evidence of edema ASSISTANT PROFESSOR OF FORESTRY examination is grossly intact no tremors noted. - Labs CBC & Chem 7: 12/23/22 07:56 12/23/22 07:56 Assessment and Plan Assessment: 1. Accelerated hypertension. Blood pressure is better controlled but remains elevated. Continue current medications. Workup for secondary causes in progress. Potassium was low on initial admission and therefore workup for hyperaldosteronism has been ordered as well. Patient denies history of use of drugs. She did admit to use of NSAIDs prior to admission however not on a chronic basis. Positive history of hypertension with 2 pregnancies. Patient was able to come off of antihypertensive medications about 1-1/2 year after her last 13 years ago. Last blood pressure check about 6 months ago was normal at [employer]PER[employer] office. Drug screen positive for amphetamines and opiates but patient was on Adipex. She received morphine in the ER for pain 2. Hypokalemia status post replacement 3. Abdominal pain currently improved no significant abnormalities noted on CT of the abdomen and pelvis 4. Dyspnea related to uncontrolled hypertension 5. Cardiomyopathy with EF noted at 45%. Plan: Increase dose of chlorthalidone to 50 mg daily Follow-up on serum aldosterone and renin levels Patient can be discharged on current medication regimen and follow-up in the office in about 1-2 weeks.
--- NOTE | 2022-12-28 20:50 | P.DS ---
Providers Date of admission: 12/22/22 20:45 Attending physician: Óscar Holt Consults: 12/22/22 20:44 Consult Physician Routine Consulting Provider: Eusebia Denise Consult Reason/Comments: HTN Do you want consulting provider notified?: Yes 12/23/22 18:43 Consult Physician Routine Consulting Provider: Tony Torres Consult Reason/Comments: Abnormal CT chest Do you want consulting provider notified?: Yes 12/26/22 14:09 Consult Physician Routine Consulting Provider: Donna Carballo Consult Reason/Comments: Uncontrolled diastolic hypertension Do you want consulting provider notified?: Yes, Notify in am [facility] Course: Diagnoses: Hypertensive urgency, present on admission. Improved Right liver lesion 1.7 cm, follow-up in 2-3 months. Patient is aware Hilar and mediastinal lymphadenopathy, follow-up as an outpatient with professional tutor and patient is agreeable Mild thrombocytopenia Hospital course: This is a pleasant 37-year-old patient. Follows with Dr. Peralta. Normally in good health. Rather radioactive. After her first patient did have some blood pressure. A presents with high blood pressure and some upper abdominal pain which is resolved over the last 2 days. 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 Secondary hypertension is suspected however workup was unremarkable including renal artery duplex which was negative for significant stenosis, ejection fraction 45%, CAT scan of the chest show negative for pulmonary embolism but hilar and mediastinal lymphadenopathy 1.6 cm, evaluated by professional tutor Dr. Hudson who recommended outpatient follow-up, patient informed and agrees risks included but not limited to infection, cancer and infiltrative disease like sarcoidosis are explained for the patient and she verbalized understanding and acceptance Eventually blood pressure controlled with for blood pressure medication Norvasc 10 mg, chlorthalidone 50 mg, labetalol 30 mg twice daily and losartan 100 mg daily. Blood pressure on discharge was 128/88. Patient as asymptomatic since yesterday. Patient denies any other new symptoms and she is eager to go home today. Importance of adherence to medication are explained for the patient with risks benefits are explained The patient was some evidence of right liver lesion find incidentally on imaging, it measures about 1.7 cm, asymptomatic patient instructed to follow up as an outpatient Problems and management plan were discussed with the patient and he verbalized understanding and acceptance Patient was found stable and can be discharged home in guarded prognosis however he needs follow-up as an outpatient. Patient was instructed to follow up with PCP Dr. Peralta within one week and patient agrees Patient was instructed to follow up with computer salesperson retail Dr. Brown in one week and jack tamp operator Dr. Carballo in 1-2 weeks Patient was instructed to follow up with [facility] neurologist Dr. Hudson in 2-3 weeks and she agrees to call and make her appointments Physical exam Gen: patient is a AAOx3, no distress CVS: S1-S2, RRR, no murmur Lungs: B/L CTA, no wheezing Abdomen: soft, no distention, no tenderness, positive bowel sounds Extremity: no leg edema or induration Time spent more than 35 minutes Patient Condition at Discharge: Good Plan - Discharge Summary Discharge Rx Participant: No New Discharge Prescriptions: New Chlorthalidone [Hygroton] 50 mg PO DAILY #60 tab Losartan [Cozaar] 100 mg PO HS #60 tab amLODIPine [Norvasc] 10 mg PO DAILY #30 tab Labetalol [Trandate] 300 mg PO BID #180 tab Continue Omeprazole 20 mg PO DAILY PRN PRN Reason: acid reflux Discharge Medication List Omeprazole 20 mg PO DAILY PRN 12/22/22 [History] Chlorthalidone [Hygroton] 50 mg PO DAILY #60 tab 12/28/22 [Rx] Labetalol [Trandate] 300 mg PO BID #180 tab 12/28/22 [Rx] Losartan [Cozaar] 100 mg PO HS #60 tab 12/28/22 [Rx] amLODIPine [Norvasc] 10 mg PO DAILY #30 tab 12/28/22 [Rx] Follow up Appointment(s)/Referral(s): Eulalio Blanchard MD [STAFF PHYSICIAN] - 1 Week (pt. wishes to make own supriya) Donna Carballo MD [STAFF PHYSICIAN] - 1 Week (pt. wishes to make own supriya) Wilbert Peralta DO [Primary Care Provider] - 1-2 days (we recommend to check your blood test with your doctor in one week , including your kidney function blood test and electrolytes. Pt. wishes to make own supriya. ) Patient Instructions/Handouts: Hypertension (DC) Activity/Diet/Wound Care/Special Instructions: heart healthy diet activity is restricted till you see your doctor we recommend to check your blood test with your doctor in one week , including your kidney function blood test and electrolytes Discharge Disposition: HOME SELF-CARE
[2022-12-29] MEDS ORDERED: CHLORTHALIDONE 25 MG TAB PO SCH (09:00)
[2022-12-29 13:09] LABS: Metanephrines 24 Hour,Urine 113 ug/day (52-341); Normetanephrine 24 Hour,Urine 707 ug/day (88-444); Total Metanephrines 24 Hour,Ur 820 ug/day (140-785); Urine Creatinine, 24 Hr 1.4 gm/24h (0.8-1.8)
[2022-12-30 01:41] LABS: Metanephrine, Free <25 pg/mL (< OR = 57); Normetanephrine, Free 212 pg/mL (< OR = 148); Total, Free (MN + NMN) 212 pg/mL (< OR = 205)
== END 2022-12-28 13:33 | disposition home or self-care (01) | DRG 305 ==
LOC: EC 18:18 → 3SCARD 20:45
PROVIDERS: ADMIT Hospitalist; ATTEND Hospitalist
DX: I16.1 Hypertensive emergency (principal); I42.9 Cardiomyopathy, unspecified; I50.32 Chronic diastolic (congestive) heart failure; R10.9 Unspecified abdominal pain; R59.0 Localized enlarged lymph nodes; Z87.891 Personal history of nicotine dependence; E04.1 Nontoxic single thyroid nodule; R63.4 Abnormal weight loss; E87.6 Hypokalemia; R80.9 Proteinuria, unspecified; I10 Essential (primary) hypertension; D69.6 Thrombocytopenia, unspecified; K76.9 Liver disease, unspecified; I11.0 Hypertensive heart disease with heart failure; Z79.899 Other long term (current) drug therapy; Z82.49 Family history of ischemic heart disease and other diseases of the circulatory system
CPT/HCPCS: 36415; 71046; 71275; 74175; 74177; 76705; 80053; 80306; 81001; 81025; 81050; 82043; 82088; 82150; 82164; 82533; 82570; 83690; 83735; 83835; 83880; 84100; 84156; 84244; 84443; 85025; 85610; 85730; 93005; 93306; 93975; 96361; 96372; 96374; 96375; 99291

== ENCOUNTER → 2022-12-31 | Outpatient (CLI) | payer OTHER ==
[2022-12-31 16:56] LABS: ALT 53 U/L (8-44); AST 32 U/L (13-35); Albumin 4.9 d/dL (3.8-4.9); Albumin/Globulin Ratio 2.04 Ratio (1.60-3.17); Alkaline Phosphatase 72 U/L (41-126); BUN/Creat Ratio 18.75 Ratio (12.00-20.00); Blood Urea Nitrogen 22.5 mg/dL (9.0-27.0); Calcium 10.5 mg/dL (8.7-10.3); Chloride 100 mmol/L (96-109); Chol/HDL Ratio 4.44 Ratio; Globulin 2.4 d/dL (1.6-3.3); Glucose 89 mg/dL (70-110); LDL Cholesterol,Calculated 162.2 mg/dL (0.0-131.0); Potassium 4.7 mmol/L (3.5-5.5); Sodium 136 mmol/L (135-145); Total Bilirubin 0.7 mg/dL (0.3-1.2); Total Protein 7.3 d/dL (6.2-8.2)
[2022-12-31 23:34] LABS: Basophils # (A) 0.09 X 10*3/uL (0.00-0.10); Basophils % (A) 1.2 %; Eosinophils # (A) 0.27 X 10*3/uL (0.04-0.35); Eosinophils % (A) 3.7 %; HCT 49.8 % (37.2-46.3); HGB 16.2 d/dL (12.0-15.0); Lymphocytes % (A) 19.1 %; MCH 29.7 pg (27.0-32.0); MCHC 32.5 d/dL (32.0-37.0); MCV 91.2 FL (80.0-97.0); Monocytes # (A) 0.62 X 10*3/uL (0.20-1.00); Monocytes % (A) 8.5 %; NRBC Per 100 WBC 0 X 10*3/uL (0.00-0.01); Neutrophils # (A) 4.92 X 10*3/uL (1.80-7.70); Neutrophils % (A) 67.2 %; Platelet Count 245 X 10*3/uL (140-440); RBC 5.46 X 10*6/uL (4.10-5.20); RDW 13.4 % (11.5-14.5); WBC 7.32 X 10*3/uL (4.50-10.00)
== END | disposition home or self-care (01) ==
LOC: LABWHC1 07:49
PROVIDERS: ATTEND Family Medicine
DX: Z00.00 Encounter for general adult medical examination without abnormal findings (principal); I16.0 Hypertensive urgency
CPT/HCPCS: 36415; 80053; 80061; 82306; 84443; 85025

== ENCOUNTER → 2023-01-04 | Outpatient (CLI) | payer OTHER | END | disposition home or self-care (01) | LOC: LABWHC1 08:23 | PROVIDERS: ATTEND Family Medicine | DX: E83.52 Hypercalcemia (principal) | CPT/HCPCS: 36415; 83970 ==

== ENCOUNTER → 2023-04-25 | Outpatient (CLI) | payer OTHER ==
[2023-04-25 18:55] LABS: Basophils # (A) 0.05 X 10*3/uL (0.00-0.10); Basophils % (A) 0.9 %; Eosinophils % (A) 1.7 %; HCT 36.6 % (37.2-46.3); HGB 12.4 g/dL (12.0-15.0); Lymphocytes # (A) 1.25 X 10*3/uL (0.90-5.00); Lymphocytes % (A) 21.7 %; MCH 29.6 pg (27.0-32.0); MCHC 33.9 g/dL (32.0-37.0); MCV 87.4 FL (80.0-97.0); Mean Platelet Volume 10.8 FL (9.5-12.2); Monocytes # (A) 0.34 X 10*3/uL (0.20-1.00); Monocytes % (A) 5.9 %; NRBC Per 100 WBC 0 X 10*3/uL (0.00-0.01); Neutrophils # (A) 3.99 X 10*3/uL (1.80-7.70); Neutrophils % (A) 69.5 %; Platelet Count 208 X 10*3/uL (140-440); RBC 4.19 X 10*6/uL (4.10-5.20); RDW 12.6 % (11.5-14.5); WBC 5.75 X 10*3/uL (4.50-10.00)
[2023-04-25 19:04] LABS: ALT 23 U/L (8-44); AST 18 U/L (13-35); Albumin 4.6 g/dL (3.8-4.9); Albumin/Globulin Ratio 1.92 Ratio (1.60-3.17); Alkaline Phosphatase 73 U/L (41-126); BUN/Creat Ratio 12.67 Ratio (12.00-20.00); Blood Urea Nitrogen 15.2 mg/dL (9.0-27.0); Calcium 9.9 mg/dL (8.7-10.3); Carbon Dioxide 26.6 mmol/L (21.6-31.8); Chloride 101 mmol/L (96-109); Chol/HDL Ratio 3.72 Ratio; Globulin 2.4 g/dL (1.6-3.3); Glucose 83 mg/dL (70-110); LDL Cholesterol,Calculated 132.8 mg/dL (0.0-131.0); Potassium 3.8 mmol/L (3.5-5.5); Sodium 136 mmol/L (135-145); Total Bilirubin 0.4 mg/dL (0.3-1.2)
== END | disposition home or self-care (01) ==
LOC: LABWHC1 12:13
PROVIDERS: ATTEND Family Medicine
DX: I10 Essential (primary) hypertension (principal); E78.5 Hyperlipidemia, unspecified
CPT/HCPCS: 36415; 80053; 80061; 85025

== ENCOUNTER → 2023-05-11 | Outpatient (CLI) | payer OTHER ==
--- NOTE | 2023-05-17 06:19 | CT ---
EXAMINATION TYPE: CT chest w con CT DLP: 325.9 mGycm, Automated exposure control for dose reduction was used. DATE OF EXAM: 05/11/2023 9:15 AM COMPARISON: CTA chest 12/22/2022. CLINICAL INDICATION:Female, 38 years old with history of R59.0 ENLARGE LYMPH NODES; PHH, enlarged lym ph nodes TECHNIQUE: Multiple axial images were obtained through the chest. Sagittal and coronal reformats were created for review. Contrast used:100 mL of Isovue 300 with IV Contrast (None if empty) Oral contrast used: (None if empty) FINDINGS: LOWER NECK: No significant findings. HEART: Normal in size..No significant coronary calcifications seen. No significant pericardial effus ion. VASCULATURE: Aorta is normal in size and enhances normally. Grossly preserved enhancement of the pu lmonary arteries in the limits of the exam. Pulmonary trunk is nonenlarged. MEDIASTINUM: No gross evidence of adenopathy. Previously enlarged nodes are no longer identified. LUNGS/ PLEURA: The lung parenchyma appears unremarkable. AIRWAY: Central airways patent and unremarkable. MUSCULOSKELETAL: No acute osseous abnormalities. SOFT TISSUES: Unremarkable. UPPER ABDOMEN: No significant findings. Small fat-containing posterior diaphragmatic hernia on the le ft. IMPRESSION: 1. Unremarkable study. 2. Previous enlarged mediastinal and hilar nodes are no longer identified.
== END | disposition home or self-care (01) ==
LOC: RADCTMAIN 08:42
PROVIDERS: ATTEND Internal Medicine
DX: R59.0 Localized enlarged lymph nodes (principal)
CPT/HCPCS: 71260; Q9967